=== PATIENT | male | born 1965 | race Caucasian/White ===

== ENCOUNTER 2017-04-15 02:13 | Observation (INO) | payer OTHER ==
[~2017-04-15] VITALS: Ht 172.7 cm; Wt 86.2 kg
[~2017-04-15 02:13] MED LIST: ADVIL,NUPRIN,M200 MG PO; AMITRIPTYLINE H50 MG PO; AMOXIL875 MG PO; CENTRUM SILVER1 EAC1 PO; COLACE100 MG PO; CONSTULOSE10 GM/15 M PO; Chronulac,Cephulac,E PO; FLOVENT DISKUS1 DIS1 IH; FLOXIN OTIC SOLN5 ML BOTH EARS; FLUCONAZOLE100 MG PO; FLUOXETINE HCL20 MG PO; GABAPENTIN400 MG PO; GENERLAC10 GM/15 M PO; IBUPROFEN IB200 MG PO; IMODIUM MS REL1 EACH PO; K-DUR20 MEQ PO; LASIX40 MG PO; LONG ACTING NAS15 ML RIGHT NARE; LYRICA100 MG PO; LYRICA150 MG PO; METFORMIN HCL500 M1 PO; NADOLOL20 MG PO; NADOLOL40 MG PO; NAPROXEN500 MG PO; NEURONTIN; NEURONTIN300 MG PO; NITROSTAT0.4 MG SL; NORTRIPTYLINE H25 MG PO; OMEPRAZOLE20 MG PO; OXYCODONE HCL10 MG PO; OXYCODONE HCL5 MG PO; PANTOPRAZOLE SO40 MG PO; PENTOXIFYLLINE400 MG PO; POTASSIUM-9999 MG PO; PREDNISONE20 MG PO; PREDNISONE5 M1 PO; PROAIR HFA8.5 GM IH; PROTONIX IV40 MG PO; PROZAC10 MG PO; RANITIDINE HCL150 M1 PO; SEREVENT DISKU50 MCG IH; SPIRONOLACTONE50 MG PO; TYLENOL WITH C1 EACH PO; VENTOLIN HFA18 GM IH; Vicodin,Lortab 5/500 PO; ZANAFLEX4 MG PO; ZANTAC150 MG PO; ZITHROMAX Z-PA250 MG PO
[2017-04-15 03:12] LABS: MCH 31.7 PG (29.0-34.0); MCHC 31.6 G/DL (30.0-36.0); MCV 100.5 FL (86-99); MEAN PLAT.VOLUME 11.8 uM^3 (9.0-12.4); PLATELET COUNT 62 K/uL (156-360); RBC DIS.WIDTH-SD 58.9 % (39-53); RED BLOOD COUNT 3.78 M/uL (4.00-5.50); WHITE BLOOD COUNT 3.9 K/uL (4.1-10.2)
[2017-04-15 03:24] LABS: CHLORIDE 113 mEq/L (99-109); POTASSIUM 3.5 mEq/L (3.7-5.4); SODIUM 146 mEq/L (136-147)
[2017-04-15 03:27] LABS: GLUCOSE 100 mg/dL (70-99)
[2017-04-15 03:28] LABS: ANION GAP 11 MEQ/L (2-14); TOTAL BILIRUBIN 4.2 mg/dL (0.0-1.0)
[2017-04-15 03:29] LABS: INTER. NORMALIZED RATIO 1.4; PROTHROMBIN TIME 14.8 (9.2-11.2); PTT 35.7 (25-32); SERUM ETHYL ALCOHOL 283 mg/dL
[2017-04-15 03:30] LABS: ALKALINE PHOSPHATASE 102 IU/L (3-129); GFR ESTIMATE (CALCULATED) > 59 mL/min/
[2017-04-15 03:31] LABS: UREA NITROGEN (BUN) 6 mg/dL (9-23)
[2017-04-15 03:34] LABS: TROP-I INTERPRETATION NEGATIVE; TROPONIN-I < 0.01 ng/mL (0.0-0.30)
[2017-04-15 06:16] LABS: MAGNESIUM 1.7 mg/dL (1.3-2.7)
[2017-04-15 07:24] VITALS: BP 118/68
[2017-04-15 10:39] LABS: TROP-I INTERPRETATION NEGATIVE; TROPONIN-I < 0.01 ng/mL (0.0-0.30)
[2017-04-15 11:20] VITALS: BP 116/65
[2017-04-15] MEDS ORDERED: FOLIC ACID1 MG PO (12:04)
[2017-04-15] MEDS ORDERED: Thiamine,Vitamin B1 PO (12:04)
[2017-04-15 12:15] VITALS: BP 115/70
[2017-04-15] MEDS ORDERED: VITAMIN D31000 UNI2 PO (13:17)
[2017-04-15 16:09] VITALS: BP 127/73
[2017-04-15 16:47] LABS: TROP-I INTERPRETATION NEGATIVE; TROPONIN-I < 0.01 ng/mL (0.0-0.30)
== END 2017-04-15 17:35 | disposition home or self-care (01) ==
LOC: EME → EDBD 02:13 → EDOF 05:51 → 5WEST 07:09
PROVIDERS: Emergency Medicine; Internal Medicine
DX: R07.89 Other chest pain (principal); D69.6 Thrombocytopenia, unspecified; J44.9 Chronic obstructive pulmonary disease, unspecified; E11.9 Type 2 diabetes mellitus without complications; F17.200 Nicotine dependence, unspecified, uncomplicated; M79.7 Fibromyalgia; F32.9 Major depressive disorder, single episode, unspecified; F41.9 Anxiety disorder, unspecified; G43.909 Migraine, unspecified, not intractable, without status migrainosus; F10.20 Alcohol dependence, uncomplicated; B19.20 Unspecified viral hepatitis C without hepatic coma; K76.6 Portal hypertension; K31.89 Other diseases of stomach and duodenum; K74.60 Unspecified cirrhosis of liver
CPT/HCPCS: 71010; 71275; 80053; 83735; 84484; 85027; 85379; 85610; 85730; 93005; 99281; 99285; G0378; G0480; J1885

== ENCOUNTER 2017-05-20 21:31 | Inpatient (IN) | payer OTHER ==
[~2017-05-20] VITALS: Ht 175.3 cm; Wt 89.7 kg
[~2017-05-20 21:31] MED LIST changes: +FOLIC ACID1 MG PO; +Thiamine,Vitamin B1 PO; +VITAMIN D31000 UNI2 PO
[2017-05-20 23:51] LABS: CHLORIDE 107 mEq/L (99-109); EOSINOPHIL (%) 0.6 % (0-5); HEMATOCRIT 37.8 % (38.0-50.0); INSTRUMENT ABS NEUTROPHIL CT 2.4 K/uL; LYMPHOCYTE COUNT 0.3 K/uL (1.0-2.8); MCH 32.3 PG (29.0-34.0); MCHC 32.3 G/DL (30.0-36.0); MONOCYTE (%) 17.8 % (3-12); MONOCYTE COUNT 0.6 K/uL (0-0.8); NEUTROPHIL (%) 71.6 % (45-76); NEUTROPHIL COUNT 2.4 K/uL (1.8-6.4); POTASSIUM 4.4 mEq/L (3.7-5.4); RBC DIS.WIDTH-CV 19.4 % (11.8-14.6); RBC DIS.WIDTH-SD 71.2 % (39-53); RED BLOOD COUNT 3.78 M/uL (4.00-5.50); SODIUM 139 mEq/L (136-147); WHITE BLOOD COUNT 3.3 K/uL (4.1-10.2)
[2017-05-20 23:53] LABS: GLUCOSE 122 mg/dL (70-99)
[2017-05-20 23:54] LABS: ANION GAP 9 MEQ/L (2-14)
[2017-05-20 23:55] LABS: TOTAL BILIRUBIN 4.1 mg/dL (0.0-1.0)
[2017-05-20 23:56] LABS: ALKALINE PHOSPHATASE 91 IU/L (3-129); SERUM ETHYL ALCOHOL < 10 mg/dL
[2017-05-20 23:57] LABS: GFR ESTIMATE (CALCULATED) > 59 mL/min/
[2017-05-20 23:58] LABS: UREA NITROGEN (BUN) 15 mg/dL (9-23)
[2017-05-21] VITALS (8 sets, daily range): BP systolic 100–133; BP diastolic 67–87
[2017-05-21] LABS: LIPASE 28 U/L (1.0-51.0)
[2017-05-21 00:04] LABS: TROP-I INTERPRETATION NEGATIVE; TROPONIN-I < 0.01 ng/mL (0.0-0.30)
[2017-05-21 00:10] LABS: CREATINE KINASE 1621 IU/L (1-294)
[2017-05-21 00:22] LABS: ADD MIUA? YES; BILIRUBIN SMALL; BLOOD NEGATIVE; COLOR AMBER ((YELLOW)); GLUCOSE (STRIP) 50; KETONES 20; LEUKOCYTES NEGATIVE; NITRITE NEGATIVE; PROTEIN (STRIP) 100; SPECIFIC GRAVITY 1.023 (1.000-1.030)
[2017-05-21 00:29] LABS: IMM.PLATELET FRACTION 14.8 (1-7); PLATELET COUNT 47 K/uL (156-360)
[2017-05-21 00:33] LABS: AMPHETAMINE NEGATIVE (500 ng/mL); BARBITURATES NEGATIVE (200 ng/mL); BENZODIAZEPINES PRESUMPTIVE POSITIVE (150 ng/mL); COCAINE NEGATIVE (150 ng/mL); INTERNAL CONTROLS VALID? YES; METHADONE NEGATIVE (200 ng/mL); METHAMPHETAMINE NEGATIVE (500 ng/mL); OPIATES (MORPHINE) NEGATIVE (100 ng/mL); OXYCODONE NEGATIVE (100 ng/mL); PHENCYCLIDINE NEGATIVE (25 ng/mL); PROPOXYPHENE NEGATIVE (300 ng/mL); THC CANNABINOIDS NEGATIVE (50 ng/mL); TRICYCLIC ANTIDEPRESSANTS PRESUMPTIVE POSITIVE (300 ng/mL)
[2017-05-21 00:34] LABS: ADD MEDTOX COMMENT Y
[2017-05-21 00:54] LABS: EPITHELIAL CELLS RARE /HPF; MUCUS RARE /LPF; RED BLOOD CELLS 0-5 /HPF (0-5); WHITE BLOOD CELLS 0-5 /HPF (0-5)
[2017-05-21 00:55] LABS: BACTERIA 1+ /HPF; CASTS PRESENT /LPF; CRYSTALS NONE SEEN; FINE GRANULAR CASTS RARE /LPF; HYALINE CASTS 0-5 /LPF; UCUL ADDED? NO
[2017-05-21 01:12] LABS: BENZODIAZEPINES, URINE SCREEN POSITIVE (200 ng/mL)
[2017-05-21 04:08] LABS: INTER. NORMALIZED RATIO 1.5; PROTHROMBIN TIME 15.8 (9.2-11.2); PTT 35.8 (25-32)
[2017-05-21 05:54] LABS: POINT-OF-CARE METER ID UU13113748; POINT-OF-CARE USER ID 609231305
[2017-05-21 06:30] LABS: EOSINOPHIL (%) 1.3 % (0-5); INSTRUMENT ABS NEUTROPHIL CT 1.4 K/uL; LYMPHOCYTE COUNT 0.5 K/uL (1.0-2.8); MCH 32.4 PG (29.0-34.0); MCHC 31.8 G/DL (30.0-36.0); MCV 101.9 FL (86-99); MONOCYTE (%) 18.5 % (3-12); MONOCYTE COUNT 0.4 K/uL (0-0.8); NEUTROPHIL (%) 60.5 % (45-76); NEUTROPHIL COUNT 1.4 K/uL (1.8-6.4); RBC DIS.WIDTH-CV 19.3 % (11.8-14.6); RBC DIS.WIDTH-SD 73.9 % (39-53); RED BLOOD COUNT 3.24 M/uL (4.00-5.50); WHITE BLOOD COUNT 2.4 K/uL (4.1-10.2)
[2017-05-21 06:59] LABS: HEMATOLOGY COMMENT 1 SMEAR COMPATIBLE; IMM.PLATELET FRACTION 9.9 (1-7); MEAN PLAT.VOLUME 14.5 uM^3 (9.0-12.4); PLAT.SUFFICIENCY DECREASED; PLATELET COUNT 42 K/uL (156-360)
[2017-05-21 07:03] LABS: ALKALINE PHOSPHATASE 76 IU/L (3-129); ANION GAP 7 MEQ/L (2-14); CHLORIDE 112 MEQ/L (99-109); GAMMA-GT 66 IU/L (4-73); GFR ESTIMATE (CALCULATED) > 59 mL/min/; GLUCOSE 98 mg/dL (70-99); POTASSIUM 3.7 MEQ/L (3.7-5.4); SAMPLE HEMOLYSIS CHECK 0; SAMPLE ICTERIC CHECK 1; SAMPLE LIPEMIA CHECK 0; SODIUM 142 MEQ/L (136-147); TOTAL BILIRUBIN 3.8 MG/DL (0.0-1.0); UREA NITROGEN (BUN) 10 mg/dL (9-23)
[2017-05-21 07:45] LABS: METH RESISTANT S AUREUS PCR NEGATIVE (NEGATIVE)
[2017-05-21 07:49] LABS: PROBE CHECK PASS; SPECIMEN PROCESSING CONTROL PASS
[2017-05-21 11:54] LABS: POINT-OF-CARE METER ID UU13113748
[2017-05-22 00:01] VITALS: BP 124/66
[2017-05-22 04:19] VITALS: BP 113/68
[2017-05-22 06:33] LABS: HEMATOCRIT 32.7 % (38.0-50.0); MCH 32.2 PG (29.0-34.0); MCHC 32.1 G/DL (30.0-36.0); MCV 100.3 FL (86-99); RBC DIS.WIDTH-SD 71.1 % (39-53); RED BLOOD COUNT 3.26 M/uL (4.00-5.50)
[2017-05-22 06:39] LABS: INTER. NORMALIZED RATIO 1.5; PROTHROMBIN TIME 15.8 (9.2-11.2); PTT 35.4 (25-32); WHITE BLOOD COUNT 1.8 K/uL (4.1-10.2)
[2017-05-22 06:46] LABS: ALKALINE PHOSPHATASE 80 IU/L (3-129); ANION GAP 6 MEQ/L (2-14); CHLORIDE 111 MEQ/L (99-109); GFR ESTIMATE (CALCULATED) > 59 mL/min/; GLUCOSE 93 mg/dL (70-99); POTASSIUM 3.3 MEQ/L (3.7-5.4); SAMPLE HEMOLYSIS CHECK 0; SAMPLE ICTERIC CHECK 1; SAMPLE LIPEMIA CHECK 0; SODIUM 139 MEQ/L (136-147); TOTAL BILIRUBIN 3.7 MG/DL (0.0-1.0); UREA NITROGEN (BUN) 7 mg/dL (9-23)
[2017-05-22 07:38] LABS: EOSINOPHIL (%) 2.8 % (0-5); EOSINOPHIL COUNT 0.1 K/uL (0-0.3); IMMATURE GRANULOCYTE (%) 0.6 % (0.0-0.7); LYMPHOCYTE COUNT 0.4 K/uL (1.0-2.8); MONOCYTE (%) 19.3 % (3-12); MONOCYTE COUNT 0.4 K/uL (0-0.8); NEUTROPHIL (%) 55.2 % (45-76); PLAT.SUFFICIENCY DECREASED; PLATELET COUNT 39 K/uL (156-360)
[2017-05-22 09:12] VITALS: BP 126/74
[2017-05-22 11:55] VITALS: BP 126/78
[2017-05-22 14:58] VITALS: BP 110/75
[2017-05-22 19:30] VITALS: BP 123/85
[2017-05-23 00:21] VITALS: BP 121/78
[2017-05-23 04:41] VITALS: BP 124/86
[2017-05-23 05:48] LABS: ALKALINE PHOSPHATASE 81 IU/L (3-129); ANION GAP 6 MEQ/L (2-14); CHLORIDE 107 MEQ/L (99-109); GFR ESTIMATE (CALCULATED) > 59 mL/min/; GLUCOSE 102 mg/dL (70-99); POTASSIUM 3.4 MEQ/L (3.7-5.4); SAMPLE HEMOLYSIS CHECK 0; SAMPLE ICTERIC CHECK 1; SAMPLE LIPEMIA CHECK 0; SODIUM 135 MEQ/L (136-147); TOTAL BILIRUBIN 4.1 MG/DL (0.0-1.0); UREA NITROGEN (BUN) 4 mg/dL (9-23)
[2017-05-23 06:15] LABS: HEMATOCRIT 32.1 % (38.0-50.0); MCH 32.6 PG (29.0-34.0); MCV 98.8 FL (86-99); RBC DIS.WIDTH-CV 18.5 % (11.8-14.6); RBC DIS.WIDTH-SD 66.8 % (39-53); RED BLOOD COUNT 3.25 M/uL (4.00-5.50); WHITE BLOOD COUNT 2.1 K/uL (4.1-10.2)
[2017-05-23 06:48] LABS: EOSINOPHIL (%) 2.3 % (0-5); EOSINOPHIL COUNT 0.1 K/uL (0-0.3); IMM.PLATELET FRACTION 11.7 (1-7); IMMATURE GRANULOCYTE (%) 0.5 % (0.0-0.7); INSTRUMENT ABS NEUTROPHIL CT 1.4 K/uL; LYMPHOCYTE COUNT 0.4 K/uL (1.0-2.8); MONOCYTE (%) 16.4 % (3-12); MONOCYTE COUNT 0.4 K/uL (0-0.8); NEUTROPHIL COUNT 1.4 K/uL (1.8-6.4); PLAT.SUFFICIENCY DECREASED; PLATELET COUNT 42 K/uL (156-360)
[2017-05-23 07:25] VITALS: BP 129/77
[2017-05-23 12:16] VITALS: BP 134/85
[2017-05-23] MEDS ORDERED: CONSTULOSE10 GM/15 M PO (15:34)
[2017-05-23] MEDS ORDERED: B-1100 MG PO (15:41)
[2017-05-23] MEDS ORDERED: SPIRONOLACTONE100 MG PO (15:42)
[2017-05-23 16:00] VITALS: BP 123/67
[2017-05-23 19:25] VITALS: BP 140/82
[2017-05-24] VITALS (8 sets, daily range): BP systolic 111–133; BP diastolic 73–84
[2017-05-24 06:08] LABS: EOSINOPHIL (%) 2.5 % (0-5); EOSINOPHIL COUNT 0.1 K/uL (0-0.3); HEMATOCRIT 32.3 % (38.0-50.0); IMMATURE GRANULOCYTE (%) 0.4 % (0.0-0.7); INSTRUMENT ABS NEUTROPHIL CT 1.5 K/uL; LYMPHOCYTE COUNT 0.4 K/uL (1.0-2.8); MCH 32.2 PG (29.0-34.0); MCHC 32.5 G/DL (30.0-36.0); MCV 99.1 FL (86-99); MONOCYTE (%) 14.6 % (3-12); MONOCYTE COUNT 0.4 K/uL (0-0.8); NEUTROPHIL (%) 63.7 % (45-76); NEUTROPHIL COUNT 1.5 K/uL (1.8-6.4); RBC DIS.WIDTH-CV 18.5 % (11.8-14.6); RBC DIS.WIDTH-SD 67.6 % (39-53); RED BLOOD COUNT 3.26 M/uL (4.00-5.50); WHITE BLOOD COUNT 2.4 K/uL (4.1-10.2)
[2017-05-24 06:45] LABS: ALKALINE PHOSPHATASE 74 IU/L (3-129); ANION GAP 7 MEQ/L (2-14); CHLORIDE 109 MEQ/L (99-109); GFR ESTIMATE (CALCULATED) > 59 mL/min/; GLUCOSE 101 mg/dL (70-99); POTASSIUM 3.5 MEQ/L (3.7-5.4); SAMPLE HEMOLYSIS CHECK 0; SAMPLE ICTERIC CHECK 1; SAMPLE LIPEMIA CHECK 0; SODIUM 138 MEQ/L (136-147); TOTAL BILIRUBIN 3.4 MG/DL (0.0-1.0); UREA NITROGEN (BUN) 3 mg/dL (9-23)
[2017-05-24 07:31] LABS: IMM.PLATELET FRACTION 13.4 (1-7); MEAN PLAT.VOLUME 13.7 uM^3 (9.0-12.4); PLAT.SUFFICIENCY DECREASED; PLATELET COUNT 41 K/uL (156-360)
[2017-05-25 03:21] VITALS: BP 121/83
[2017-05-25 06:14] LABS: EOSINOPHIL (%) 1.7 % (0-5); EOSINOPHIL COUNT 0.1 K/uL (0-0.3); IMMATURE GRANULOCYTE (%) 0.3 % (0.0-0.7); INSTRUMENT ABS NEUTROPHIL CT 2.1 K/uL; LYMPHOCYTE COUNT 0.4 K/uL (1.0-2.8); MCH 32.4 PG (29.0-34.0); MCHC 32.4 G/DL (30.0-36.0); MONOCYTE (%) 14.9 % (3-12); MONOCYTE COUNT 0.5 K/uL (0-0.8); NEUTROPHIL (%) 69.9 % (45-76); NEUTROPHIL COUNT 2.1 K/uL (1.8-6.4); RBC DIS.WIDTH-CV 18.8 % (11.8-14.6)
[2017-05-25 07:40] LABS: CHLORIDE 108 mEq/L (99-109); POTASSIUM 3.5 mEq/L (3.7-5.4); SODIUM 137 mEq/L (136-147)
[2017-05-25 07:42] LABS: GLUCOSE 92 mg/dL (70-99)
[2017-05-25 07:43] LABS: ANION GAP 8 MEQ/L (2-14)
[2017-05-25 07:45] LABS: ALKALINE PHOSPHATASE 82 IU/L (3-129)
[2017-05-25 07:46] LABS: GFR ESTIMATE (CALCULATED) > 59 mL/min/
[2017-05-25 07:47] LABS: TOTAL BILIRUBIN 3.1 mg/dL (0.0-1.0); UREA NITROGEN (BUN) 3 mg/dL (9-23)
[2017-05-25 08:00] VITALS: BP 121/83
[2017-05-25 08:18] LABS: HEMATOLOGY COMMENT 1 SMEAR COMPATIBLE; IMM.PLATELET FRACTION 12.7 (1-7); MEAN PLAT.VOLUME 12.9 uM^3 (9.0-12.4); PLAT.SUFFICIENCY DECREASED; PLATELET COUNT 42 K/uL (156-360)
[2017-05-25 11:30] VITALS: BP 113/75
[2017-05-25 16:19] VITALS: BP 128/69
[2017-05-25 19:30] VITALS: BP 92/60
[2017-05-26] VITALS (7 sets, daily range): BP systolic 103–135; BP diastolic 66–80
[2017-05-26 06:26] LABS: ALKALINE PHOSPHATASE 80 IU/L (3-129); ANION GAP 5 MEQ/L (2-14); CHLORIDE 109 MEQ/L (99-109); GFR ESTIMATE (CALCULATED) > 59 mL/min/; GLUCOSE 94 mg/dL (70-99); SAMPLE HEMOLYSIS CHECK 0; SAMPLE ICTERIC CHECK 0; SAMPLE LIPEMIA CHECK 0; SODIUM 137 MEQ/L (136-147); UREA NITROGEN (BUN) 3 mg/dL (9-23)
[2017-05-26 06:29] LABS: POTASSIUM 4.3 MEQ/L (3.7-5.4); TOTAL BILIRUBIN 2.7 MG/DL (0.0-1.0)
[2017-05-27 05:14] LABS: ADD MIUA? YES; BILIRUBIN NEGATIVE; BLOOD SMALL; COLOR YELLOW ((YELLOW)); GLUCOSE (STRIP) NEGATIVE; KETONES NEGATIVE; LEUKOCYTES NEGATIVE; NITRITE NEGATIVE; PROTEIN (STRIP) NEGATIVE; SPECIFIC GRAVITY 1.002 (1.000-1.030)
[2017-05-27 05:29] LABS: BACTERIA RARE /HPF; EPITHELIAL CELLS NONE SEEN /HPF; MUCUS NONE SEEN /LPF; RED BLOOD CELLS 0-5 /HPF (0-5); UCUL ADDED? NO; WHITE BLOOD CELLS 0-5 /HPF (0-5)
[2017-05-27 05:57] LABS: HEMATOCRIT 32.3 % (38.0-50.0); MCH 32.6 PG (29.0-34.0); MCHC 32.8 G/DL (30.0-36.0); MCV 99.4 FL (86-99); RBC DIS.WIDTH-CV 18.7 % (11.8-14.6); RBC DIS.WIDTH-SD 69.3 % (39-53); RED BLOOD COUNT 3.25 M/uL (4.00-5.50); WHITE BLOOD COUNT 3.1 K/uL (4.1-10.2)
[2017-05-27 06:22] LABS: ANION GAP 5 MEQ/L (2-14); CHLORIDE 106 MEQ/L (99-109); GFR ESTIMATE (CALCULATED) > 59 mL/min/; GLUCOSE 97 mg/dL (70-99); POTASSIUM 3.5 MEQ/L (3.7-5.4); SAMPLE HEMOLYSIS CHECK 0; SAMPLE ICTERIC CHECK 0; SAMPLE LIPEMIA CHECK 0; SODIUM 135 MEQ/L (136-147); UREA NITROGEN (BUN) 2 mg/dL (9-23)
[2017-05-27 06:48] VITALS: BP 100/64
[2017-05-27 08:14] LABS: MEAN PLAT.VOLUME 12.5 uM^3 (9.0-12.4); PLATELET COUNT 47 K/uL (156-360)
[2017-05-27 11:23] VITALS: BP 112/71
[2017-05-27 17:07] VITALS: BP 138/78
[2017-05-27 19:40] VITALS: BP 96/58
[2017-05-27 23:25] VITALS: BP 96/67
[2017-05-28 03:15] VITALS: BP 101/69
[2017-05-28 07:11] VITALS: BP 93/61
[2017-05-28 08:52] LABS: HEMATOCRIT 34.5 % (38.0-50.0); MCHC 32.2 G/DL (30.0-36.0); MCV 99.4 FL (86-99); PLATELET COUNT 58 K/uL (156-360); RBC DIS.WIDTH-CV 19.3 % (11.8-14.6); RBC DIS.WIDTH-SD 70.4 % (39-53); RED BLOOD COUNT 3.47 M/uL (4.00-5.50); WHITE BLOOD COUNT 3.6 K/uL (4.1-10.2)
[2017-05-28 09:02] LABS: ALKALINE PHOSPHATASE 86 IU/L (3-129); ANION GAP 5 MEQ/L (2-14); CHLORIDE 106 MEQ/L (99-109); DIRECT BILIRUBIN 1.2 mg/dL (0.0-0.3); GFR ESTIMATE (CALCULATED) > 59 mL/min/; GLUCOSE 111 mg/dL (70-99); POTASSIUM 4.1 MEQ/L (3.7-5.4); SAMPLE HEMOLYSIS CHECK 0; SAMPLE ICTERIC CHECK 0; SAMPLE LIPEMIA CHECK 0; SODIUM 136 MEQ/L (136-147); TOTAL BILIRUBIN 2.6 MG/DL (0.0-1.0); UREA NITROGEN (BUN) 4 mg/dL (9-23)
[2017-05-28 10:50] VITALS: BP 108/59
[2017-05-28 15:59] VITALS: BP 107/63
[2017-05-28 20:19] VITALS: BP 108/67
[2017-05-29 00:03] VITALS: BP 101/66
[2017-05-29 04:17] VITALS: BP 104/56
[2017-05-29 08:36] VITALS: BP 91/51
[2017-05-29 11:13] VITALS: BP 107/64
[2017-05-29 16:15] VITALS: BP 118/62
[2017-05-29 23:44] VITALS: BP 93/54
[2017-05-30 06:48] VITALS: BP 108/69
[2017-05-30] MEDS ORDERED: FAMOTIDINE20 MG PO (06:57)
[2017-05-30] MEDS ORDERED: Chronulac,Cephulac,E PO (06:57)
[2017-05-30] MEDS ORDERED: XIFAXAN550 MG PO (06:57)
[2017-05-30] MEDS ORDERED: LORAZEPAM0.5 MG PO (06:57)
[2017-05-30] MEDS ORDERED: NICOTINE PATCH1 EAC1 TD (06:57)
[2017-05-30] MEDS ORDERED: OXYCODONE HCL10 MG PO (07:00)
[2017-05-30 15:24] VITALS: BP 110/71
[2017-05-31 00:42] VITALS: BP 128/61
[2017-05-31 07:10] VITALS: BP 97/64
[2017-05-31 15:20] VITALS: BP 96/60
[2017-05-31 23:21] VITALS: BP 92/58
[2017-06-01 08:00] VITALS: BP 106/65
[2017-06-01 22:59] VITALS: BP 94/58
[2017-06-02 08:44] VITALS: BP 105/64
[2017-06-02 16:20] VITALS: BP 110/66
[2017-06-02 23:30] VITALS: BP 92/53
[2017-06-03 07:17] VITALS: BP 98/54
== END 2017-06-03 16:06 | disposition home health service (06) | DRG 56 ==
LOC: EME 21:31 → 5EAST 05-21 04:57 → EDOF 05-21 04:57 → 4WEST 05-21 04:57 → 4EAST 05-21 04:57 → 4WEST 05-21 05:37 → 4EAST 05-21 19:31 → 5EAST 05-27 14:11
PROVIDERS: Emergency Medicine; Pediatrics; Physician Assistant
PROC: HZ2ZZZZ Detoxification Services for Substance Abuse Treatment (ICD-10-PCS; principal; 2017-05-21)
DX: G31.2 Degeneration of nervous system due to alcohol (principal); F10.231 Alcohol dependence with withdrawal delirium; K72.90 Hepatic failure, unspecified without coma; M62.82 Rhabdomyolysis; K70.30 Alcoholic cirrhosis of liver without ascites; J69.0 Pneumonitis due to inhalation of food and vomit; D61.818 Other pancytopenia; E87.6 Hypokalemia; K52.9 Noninfective gastroenteritis and colitis, unspecified; Y90.0 Blood alcohol level of less than 20 mg/100 ml; F17.200 Nicotine dependence, unspecified, uncomplicated; F32.9 Major depressive disorder, single episode, unspecified; J44.9 Chronic obstructive pulmonary disease, unspecified; K21.9 Gastro-esophageal reflux disease without esophagitis; M79.7 Fibromyalgia; G43.909 Migraine, unspecified, not intractable, without status migrainosus; E11.9 Type 2 diabetes mellitus without complications; Z75.1 Person awaiting admission to adequate facility elsewhere; I25.2 Old myocardial infarction; Z88.2 Allergy status to sulfonamides; Z88.1 Allergy status to other antibiotic agents
CPT/HCPCS: 70450; 71010; 71020; 71250; 72125; 72128; 72131; 73030; 73080; 73130; 74176; 76705; 80048; 80048 91; 80053; 80069; 80076; 81003; 82105 90; 82140; 82550; 82948; 82977; 83605; 83690; 84484; 84999; 85025; 85025 91; 85027; 85610; 85730; 86900; 86901; 87040; 87641; 93005; 93976; 97530 GO; 99281; 99285; G0480; J0456; J0696; J1630; J2060; J2405; J3411; J3475; J3480; J7030; J7040; J7050; S0028

== ENCOUNTER 2017-07-19 11:09 | Inpatient (IN) | payer OTHER ==
[~2017-07-19] VITALS: Ht 172.7 cm; Wt 86.4 kg
[~2017-07-19 11:09] MED LIST changes: +AVENTYL,PAMELOR50 MG PO; +B-1100 MG PO; +FAMOTIDINE20 MG PO; +LORAZEPAM0.5 MG PO; +NICOTINE PATCH1 EAC1 TD; -NORTRIPTYLINE H25 MG PO; +SPIRONOLACTONE100 MG PO; +XIFAXAN550 MG PO
[2017-07-19 12:02] LABS: HEMATOCRIT 36.6 % (38.0-50.0); MCH 32.9 PG (29.0-34.0); MCHC 33.9 G/DL (30.0-36.0); MCV 97.1 FL (86-99); MEAN PLAT.VOLUME 12.5 uM^3 (9.0-12.4); PLATELET COUNT 65 K/uL (156-360); RBC DIS.WIDTH-CV 18.7 % (11.8-14.6); RBC DIS.WIDTH-SD 67.9 % (39-53); RED BLOOD COUNT 3.77 M/uL (4.00-5.50); WHITE BLOOD COUNT 2.9 K/uL (4.1-10.2)
[2017-07-19 12:13] LABS: CHLORIDE 99 mEq/L (99-109)
[2017-07-19 12:14] LABS: POTASSIUM 3.1 mEq/L (3.7-5.4); SODIUM 142 mEq/L (136-147)
[2017-07-19 12:15] LABS: GLUCOSE 120 mg/dL (70-99)
[2017-07-19 12:17] LABS: ANION GAP 17 MEQ/L (2-14)
[2017-07-19 12:19] LABS: GFR ESTIMATE (CALCULATED) > 59 mL/min/
[2017-07-19 12:20] LABS: UREA NITROGEN (BUN) 4 mg/dL (9-23)
[2017-07-19 14:55] LABS: POINT-OF-CARE METER ID UU14100415
[2017-07-19] MEDS ORDERED: OXYCODONE HCL10 MG PO (17:34)
[2017-07-19] MEDS ORDERED: ENULOSE10 GM/15 M PO (17:35)
[2017-07-19] MEDS ORDERED: HYDROCHLOROTHIA25 MG PO (17:35)
[2017-07-19] MEDS ORDERED: HYDROCHLOROTH12.5 M3 PO (17:36)
[2017-07-19 22:58] VITALS: BP 123/71
[2017-07-20 04:04] VITALS: BP 102/60
[2017-07-20 07:29] LABS: HEMATOCRIT 30.8 % (38.0-50.0); MCHC 34.1 G/DL (30.0-36.0); MCV 96.9 FL (86-99); RBC DIS.WIDTH-CV 18.3 % (11.8-14.6); RBC DIS.WIDTH-SD 66.1 % (39-53); RED BLOOD COUNT 3.18 M/uL (4.00-5.50); WHITE BLOOD COUNT 2.7 K/uL (4.1-10.2)
[2017-07-20 07:39] LABS: ALKALINE PHOSPHATASE 108 IU/L (3-129); ANION GAP 6 MEQ/L (2-14); CHLORIDE 100 MEQ/L (99-109); DIRECT BILIRUBIN 1.7 mg/dL (0.0-0.3); GFR ESTIMATE (CALCULATED) > 59 mL/min/; GLUCOSE 148 mg/dL (70-99); POTASSIUM 3.7 MEQ/L (3.7-5.4); SAMPLE HEMOLYSIS CHECK 0; SAMPLE ICTERIC CHECK 1; SAMPLE LIPEMIA CHECK 0; SODIUM 135 MEQ/L (136-147); TOTAL BILIRUBIN 4.7 MG/DL (0.0-1.0); UREA NITROGEN (BUN) 10 mg/dL (9-23)
[2017-07-20 07:49] LABS: IMM.PLATELET FRACTION 13.1 (1-7); PLAT.SUFFICIENCY DECREASED
[2017-07-20 07:54] LABS: PLATELET COUNT 38 K/uL (156-360)
[2017-07-20 08:32] VITALS: BP 100/58
[2017-07-20 11:25] VITALS: BP 115/69
[2017-07-20 15:55] VITALS: BP 111/64
[2017-07-20 19:15] VITALS: BP 126/65
[2017-07-20 22:55] VITALS: BP 115/63
[2017-07-21 06:36] LABS: HEMATOCRIT 29.7 % (38.0-50.0); MCH 34.1 PG (29.0-34.0); MCHC 34.3 G/DL (30.0-36.0); MCV 99.3 FL (86-99); RBC DIS.WIDTH-CV 18.3 % (11.8-14.6); RBC DIS.WIDTH-SD 67.2 % (39-53); RED BLOOD COUNT 2.99 M/uL (4.00-5.50); WHITE BLOOD COUNT 4.4 K/uL (4.1-10.2)
[2017-07-21 07:00] VITALS: BP 91/53
[2017-07-21 07:00] LABS: ALKALINE PHOSPHATASE 96 IU/L (3-129); ANION GAP 5 MEQ/L (2-14); CHLORIDE 101 MEQ/L (99-109); GFR ESTIMATE (CALCULATED) > 59 mL/min/; GLUCOSE 139 mg/dL (70-99); POTASSIUM 3.9 MEQ/L (3.7-5.4); SAMPLE HEMOLYSIS CHECK 0; SAMPLE ICTERIC CHECK 0; SAMPLE LIPEMIA CHECK 0; SODIUM 133 MEQ/L (136-147); UREA NITROGEN (BUN) 8 mg/dL (9-23)
[2017-07-21 07:01] LABS: TOTAL BILIRUBIN 2.8 MG/DL (0.0-1.0)
[2017-07-21 07:38] LABS: IMM.PLATELET FRACTION 11.1 (1-7); MEAN PLAT.VOLUME 13.3 uM^3 (9.0-12.4); PLAT.SUFFICIENCY DECREASED; PLATELET COUNT 32 K/uL (156-360)
[2017-07-21] MEDS ORDERED: PREDNISONE5 MG PO (14:01)
[2017-07-21] MEDS ORDERED: CEFTIN500 MG PO (14:01)
[2017-07-21 15:00] VITALS: BP 101/59
== END 2017-07-21 16:13 | disposition home health service (06) | DRG 191 ==
LOC: EME 11:09 → EDOF 17:01 → ENRESERV 17:08 → 5EAST 22:16
PROVIDERS: Emergency Medicine; Pediatrics; Physician Assistant
DX: J44.0 Chronic obstructive pulmonary disease with (acute) lower respiratory infection (principal); J20.9 Acute bronchitis, unspecified; D61.818 Other pancytopenia; K74.60 Unspecified cirrhosis of liver; B19.20 Unspecified viral hepatitis C without hepatic coma; K76.6 Portal hypertension; K31.89 Other diseases of stomach and duodenum; J44.1 Chronic obstructive pulmonary disease with (acute) exacerbation; D73.1 Hypersplenism; E11.9 Type 2 diabetes mellitus without complications; E87.6 Hypokalemia; F17.200 Nicotine dependence, unspecified, uncomplicated; I25.10 Atherosclerotic heart disease of native coronary artery without angina pectoris; K21.9 Gastro-esophageal reflux disease without esophagitis; F10.20 Alcohol dependence, uncomplicated; M79.7 Fibromyalgia; F32.9 Major depressive disorder, single episode, unspecified; F41.9 Anxiety disorder, unspecified; G43.909 Migraine, unspecified, not intractable, without status migrainosus; J02.9 Acute pharyngitis, unspecified; I25.2 Old myocardial infarction; Z88.2 Allergy status to sulfonamides; Z88.1 Allergy status to other antibiotic agents
CPT/HCPCS: 70491; 71010; 71260; 80048; 80053; 80069; 80076; 82948; 85027; 93005; 94640; 94640 76; 99202; 99281; 99285; J0696; J1644; J2930; J3411; J7030; J7050; J7120; J7512

== ENCOUNTER → 2017-08-01 | Outpatient (CLI) | payer OTHER ==
[~2017-08-01] MED LIST changes: +CEFTIN500 MG PO; +ENULOSE10 GM/15 M PO; +HYDROCHLOROTH12.5 M3 PO; +HYDROCHLOROTHIA25 MG PO; +PREDNISONE5 MG PO
== END | disposition home or self-care (01) ==
LOC: RAD 13:22
PROC: 0WJG3ZZ Inspection of Peritoneal Cavity, Percutaneous Approach (ICD-10-PCS; principal; 2017-08-01)
DX: Z53.09 Procedure and treatment not carried out because of other contraindication (principal)
CPT/HCPCS: 76705

== ENCOUNTER 2017-10-06 20:45 | Inpatient (IN) | payer OTHER ==
[~2017-10-06] VITALS: Ht 172.7 cm; Wt 100.5 kg
[2017-10-06 21:40] LABS: CHLORIDE 107 mEq/L (99-109); POTASSIUM 3.5 mEq/L (3.7-5.4); SODIUM 140 mEq/L (136-147)
[2017-10-06 21:41] LABS: GLUCOSE 123 mg/dL (70-99)
[2017-10-06 21:43] LABS: ANION GAP 11 MEQ/L (2-14)
[2017-10-06 21:45] LABS: GFR ESTIMATE (CALCULATED) > 59 mL/min/
[2017-10-06 21:46] LABS: UREA NITROGEN (BUN) 5 mg/dL (9-23)
[2017-10-06 21:48] LABS: HEMATOCRIT 37.3 % (38.0-50.0); MCH 30.3 PG (29.0-34.0); MCHC 32.7 G/DL (30.0-36.0); MCV 92.8 FL (86-99); PLATELET COUNT 62 K/uL (156-360); RBC DIS.WIDTH-CV 17.9 % (11.8-14.6); RBC DIS.WIDTH-SD 60.6 % (39-53); RED BLOOD COUNT 4.02 M/uL (4.00-5.50); WHITE BLOOD COUNT 4.4 K/uL (4.1-10.2)
[2017-10-06 21:51] LABS: CARBON DIOXIDE (BICARBONATE) 25.4 MEQ/L (20-31)
[2017-10-06 22:08] LABS: TROP-I INTERPRETATION NEGATIVE; TROPONIN-I < 0.01 ng/mL (0.0-0.30)
[2017-10-06] MEDS ORDERED: LASIX40 MG PO (23:03)
[2017-10-06] MEDS ORDERED: LASIX20 MG PO (23:03)
[2017-10-07] VITALS (7 sets, daily range): BP systolic 105–141; BP diastolic 63–77
[2017-10-07 00:29] LABS: INTER. NORMALIZED RATIO 1.5; PROTHROMBIN TIME 16.5 SEC (10.2-12.9)
[2017-10-07 00:35] LABS: TOTAL BILIRUBIN 3.8 mg/dL (0.0-1.0)
[2017-10-07 00:36] LABS: ALKALINE PHOSPHATASE 116 IU/L (3-129)
[2017-10-07] MEDS ORDERED: PREDNISONE5 MG PO (00:37)
[2017-10-07 04:44] LABS: ADD MIUA? NO; BILIRUBIN NEGATIVE; BLOOD NEGATIVE; COLOR YELLOW ((YELLOW)); GLUCOSE (STRIP) >=500; KETONES 20; LEUKOCYTES NEGATIVE; NITRITE NEGATIVE; PROTEIN (STRIP) NEGATIVE; SPECIFIC GRAVITY 1.016 (1.000-1.030); UCUL ADDED? NO
[2017-10-07 06:58] LABS: ANION GAP 14 MEQ/L (2-14); CHLORIDE 101 MEQ/L (99-109); GFR ESTIMATE (CALCULATED) > 59 mL/min/; GLUCOSE 184 mg/dL (70-99); POTASSIUM 4.2 MEQ/L (3.7-5.4); SAMPLE HEMOLYSIS CHECK 0; SAMPLE ICTERIC CHECK 1; SAMPLE LIPEMIA CHECK 0; SODIUM 136 MEQ/L (136-147); UREA NITROGEN (BUN) 6 mg/dL (9-23)
[2017-10-07 07:59] LABS: EOSINOPHIL (%) 0 % (0-5); HEMATOCRIT 33.9 % (38.0-50.0); INSTRUMENT ABS NEUTROPHIL CT 1.1 K/uL; LYMPHOCYTE COUNT 0.2 K/uL (1.0-2.8); MCH 29.6 PG (29.0-34.0); MCHC 31.6 G/DL (30.0-36.0); MCV 93.6 FL (86-99); MONOCYTE (%) 1.5 % (3-12); NEUTROPHIL (%) 83.3 % (45-76); NEUTROPHIL COUNT 1.1 K/uL (1.8-6.4); RBC DIS.WIDTH-CV 17.5 % (11.8-14.6); RBC DIS.WIDTH-SD 61.4 % (39-53); RED BLOOD COUNT 3.62 M/uL (4.00-5.50)
[2017-10-07 08:01] LABS: WHITE BLOOD COUNT 1.3 K/uL (4.1-10.2)
[2017-10-07 08:17] LABS: IMM.PLATELET FRACTION 9.8 (1-7); MEAN PLAT.VOLUME 12.5 uM^3 (9.0-12.4)
[2017-10-07 08:19] LABS: PLATELET COUNT 43 K/uL (156-360)
[2017-10-07 10:20] LABS: INTERNAL CONTROL VALID? YES
[2017-10-08] VITALS (8 sets, daily range): BP systolic 102–122; BP diastolic 58–63
[2017-10-08 04:58] LABS: HEMATOCRIT 33.2 % (38.0-50.0); MCH 30.5 PG (29.0-34.0); MCHC 32.2 G/DL (30.0-36.0); MCV 94.6 FL (86-99); RBC DIS.WIDTH-SD 61.9 % (39-53); RED BLOOD COUNT 3.51 M/uL (4.00-5.50); WHITE BLOOD COUNT 16.5 K/uL (4.1-10.2)
[2017-10-08 05:00] LABS: CHLORIDE 109 mEq/L (99-109); POTASSIUM 4.2 mEq/L (3.7-5.4); SODIUM 139 mEq/L (136-147)
[2017-10-08 05:02] LABS: GLUCOSE 153 mg/dL (70-99)
[2017-10-08 05:03] LABS: ANION GAP 10 MEQ/L (2-14)
[2017-10-08 05:04] LABS: TOTAL BILIRUBIN 3.6 mg/dL (0.0-1.0)
[2017-10-08 05:05] LABS: ALKALINE PHOSPHATASE 90 IU/L (3-129)
[2017-10-08 05:06] LABS: GFR ESTIMATE (CALCULATED) > 59 mL/min/
[2017-10-08 05:07] LABS: UREA NITROGEN (BUN) 7 mg/dL (9-23)
[2017-10-08 05:12] LABS: TROP-I INTERPRETATION NEGATIVE; TROPONIN-I < 0.01 ng/mL (0.0-0.30)
[2017-10-08 06:59] LABS: ABS NEUTROPHIL COUNT 16.1; ANISOCYTOSIS 2+; BAND NEUTROPHILS 12.2 % (0-8.0); EOSINOPHIL ABS CT 0; INSTRUMENT ABS NEUTROPHIL CT 15.5 K/uL; MACROCYTES 2+; METAMYELOCYTES 0.9 %; OVALOCYTES 1+; PLAT.SUFFICIENCY DECREASED; PLATELET COUNT 35 K/uL (156-360); POIKILOCYTOSIS 1+; POLYCHROMASIA 1+; SEG.NEUTROPHILS 85.2 % (46.0-76.0)
[2017-10-09] VITALS (13 sets, daily range): BP systolic 113–141; BP diastolic 59–93
[2017-10-09 05:55] LABS: EOSINOPHIL (%) 0 % (0-5); HEMATOCRIT 30.9 % (38.0-50.0); IMMATURE GRANULOCYTE (%) 2.2 % (0.0-0.7); IMMATURE GRANULOCYTE COUNT 0.2 K/uL; INSTRUMENT ABS NEUTROPHIL CT 8.8 K/uL; LYMPHOCYTE COUNT 0.3 K/uL (1.0-2.8); MCH 31.3 PG (29.0-34.0); MCHC 32.4 G/DL (30.0-36.0); MCV 96.6 FL (86-99); MONOCYTE (%) 3.3 % (3-12); MONOCYTE COUNT 0.3 K/uL (0-0.8); NEUTROPHIL (%) 91.6 % (45-76); NEUTROPHIL COUNT 8.8 K/uL (1.8-6.4); RBC DIS.WIDTH-CV 18.3 % (11.8-14.6); RBC DIS.WIDTH-SD 62.7 % (39-53); WHITE BLOOD COUNT 9.6 K/uL (4.1-10.2)
[2017-10-09 06:19] LABS: ALKALINE PHOSPHATASE 79 IU/L (3-129); ANION GAP 7 MEQ/L (2-14); CHLORIDE 105 MEQ/L (99-109); GFR ESTIMATE (CALCULATED) > 59 mL/min/; GLUCOSE 175 mg/dL (70-99); POTASSIUM 4.3 MEQ/L (3.7-5.4); SAMPLE HEMOLYSIS CHECK 0; SAMPLE ICTERIC CHECK 0; SAMPLE LIPEMIA CHECK 0; SODIUM 135 MEQ/L (136-147); TOTAL BILIRUBIN 2.5 MG/DL (0.0-1.0); UREA NITROGEN (BUN) 11 mg/dL (9-23)
[2017-10-09 06:36] LABS: ABS NEUTROPHIL COUNT 9.5; ANISOCYTOSIS 1+; BAND NEUTROPHILS 25.9 % (0-8.0); EOSINOPHIL ABS CT 0; HYPOCHROMASIA 1+; IMM.PLATELET FRACTION 13.5 (1-7); LYMPHOCYTES 0.8 % (15.0-45.0); MACROCYTES 1+; OVALOCYTES 1+; PLAT.SUFFICIENCY DECREASED; PLATELET COUNT 31 K/uL (156-360); POIKILOCYTOSIS 1+; POLYCHROMASIA 1+; SEG.NEUTROPHILS 73.3 % (46.0-76.0)
[2017-10-09 06:37] LABS: MEAN PLAT.VOLUME 14.6 uM^3 (9.0-12.4)
[2017-10-09 09:07] LABS: INTER. NORMALIZED RATIO 1.9
[2017-10-09 09:15] LABS: HEMATOCRIT 30.2 % (38.0-50.0); MCH 30.8 PG (29.0-34.0); MCHC 31.8 G/DL (30.0-36.0); MCV 96.8 FL (86-99); RBC DIS.WIDTH-CV 18.6 % (11.8-14.6); RBC DIS.WIDTH-SD 65.4 % (39-53); RED BLOOD COUNT 3.12 M/uL (4.00-5.50); WHITE BLOOD COUNT 19.2 K/uL (4.1-10.2)
[2017-10-09 09:26] LABS: ANION GAP 6 MEQ/L (2-14); CHLORIDE 110 MEQ/L (99-109); GFR ESTIMATE (CALCULATED) > 59 mL/min/; GLUCOSE 184 mg/dL (70-99); POTASSIUM 4.4 MEQ/L (3.7-5.4); SAMPLE HEMOLYSIS CHECK 0; SAMPLE ICTERIC CHECK 0; SAMPLE LIPEMIA CHECK 0; SODIUM 137 MEQ/L (136-147); UREA NITROGEN (BUN) 15 mg/dL (9-23)
[2017-10-09 09:31] LABS: IMM.PLATELET FRACTION 14.5 (1-7); PLAT.SUFFICIENCY DECREASED
[2017-10-09 09:32] LABS: PLATELET COUNT 44 K/uL (156-360)
[2017-10-09 12:41] LABS: HEMATOCRIT 28.9 % (38.0-50.0); IMM.PLATELET FRACTION 16.1 (1-7); MCHC 31.8 G/DL (30.0-36.0); MCV 97.3 FL (86-99); PLATELET COUNT 40 K/uL (156-360); RBC DIS.WIDTH-CV 18.5 % (11.8-14.6); RBC DIS.WIDTH-SD 64.3 % (39-53); RED BLOOD COUNT 2.97 M/uL (4.00-5.50); WHITE BLOOD COUNT 14.9 K/uL (4.1-10.2)
[2017-10-09 12:56] LABS: PLAT.SUFFICIENCY VERY DECREASED
[2017-10-09 16:28] LABS: POINT-OF-CARE METER ID UU13113725
[2017-10-09 19:09] LABS: HEMATOCRIT 26.3 % (38.0-50.0); MCH 31.3 PG (29.0-34.0); MCHC 31.6 G/DL (30.0-36.0); MCV 99.2 FL (86-99); NRBC (%) 0.2 /100 WBC (0-0); RBC DIS.WIDTH-CV 18.6 % (11.8-14.6); RBC DIS.WIDTH-SD 66.8 % (39-53); RED BLOOD COUNT 2.65 M/uL (4.00-5.50); WHITE BLOOD COUNT 12.3 K/uL (4.1-10.2)
[2017-10-09 19:43] LABS: IMM.PLATELET FRACTION 12.9 (1-7); PLATELET CLUMPS PRESENT - PLATELET COUNTS APPEARS DECREASED
[2017-10-09 19:46] LABS: PLATELET COUNT UNABLE TO REPORT K/uL (156-360)
[2017-10-09 23:14] LABS: METH RESISTANT S AUREUS PCR NEGATIVE (NEGATIVE)
[2017-10-09 23:21] LABS: PROBE CHECK PASS; SPECIMEN PROCESSING CONTROL PASS
[2017-10-10] VITALS (27 sets, daily range): BP systolic 113–157; BP diastolic 72–105
[2017-10-10 00:56] LABS: HEMATOCRIT 27.6 % (38.0-50.0); MCH 30.6 PG (29.0-34.0); MCHC 32.2 G/DL (30.0-36.0); NRBC (%) 0.3 /100 WBC (0-0); RBC DIS.WIDTH-CV 19.1 % (11.8-14.6); RBC DIS.WIDTH-SD 64.9 % (39-53); RED BLOOD COUNT 2.91 M/uL (4.00-5.50)
[2017-10-10 01:05] LABS: MCV 94.8 FL (86-99)
[2017-10-10 01:35] LABS: IMM.PLATELET FRACTION 18.9 (1-7); MEAN PLAT.VOLUME 14.2 uM^3 (9.0-12.4); PLAT.SUFFICIENCY VERY DECREASED; PLATELET COUNT 33 K/uL (156-360)
[2017-10-10 05:26] LABS: EOSINOPHIL (%) 0 % (0-5); HEMATOCRIT 29.3 % (38.0-50.0); IMMATURE GRANULOCYTE (%) 1.3 % (0.0-0.7); IMMATURE GRANULOCYTE COUNT 0.1 K/uL; INSTRUMENT ABS NEUTROPHIL CT 5.6 K/uL; LYMPHOCYTE COUNT 0.2 K/uL (1.0-2.8); MCHC 31.7 G/DL (30.0-36.0); MCV 94.5 FL (86-99); MONOCYTE (%) 3.3 % (3-12); MONOCYTE COUNT 0.2 K/uL (0-0.8); NEUTROPHIL (%) 91.5 % (45-76); NEUTROPHIL COUNT 5.6 K/uL (1.8-6.4); NRBC (%) 0.5 /100 WBC (0-0); RBC DIS.WIDTH-CV 18.8 % (11.8-14.6); RBC DIS.WIDTH-SD 62.5 % (39-53); WHITE BLOOD COUNT 6.1 K/uL (4.1-10.2)
[2017-10-10 05:30] LABS: INTER. NORMALIZED RATIO 1.7; PROTHROMBIN TIME 19.7 SEC (10.2-12.9)
[2017-10-10 05:52] LABS: ALKALINE PHOSPHATASE 71 IU/L (3-129); ANION GAP 7 MEQ/L (2-14); CHLORIDE 110 MEQ/L (99-109); GFR ESTIMATE (CALCULATED) > 59 mL/min/; GLUCOSE 167 mg/dL (70-99); POTASSIUM 4.5 MEQ/L (3.7-5.4); SAMPLE HEMOLYSIS CHECK 0; SAMPLE ICTERIC CHECK 1; SAMPLE LIPEMIA CHECK 0; SODIUM 140 MEQ/L (136-147); UREA NITROGEN (BUN) 17 mg/dL (9-23)
[2017-10-10 06:39] LABS: IMM.PLATELET FRACTION 15.6 (1-7); MEAN PLAT.VOLUME 13.5 uM^3 (9.0-12.4); PLAT.SUFFICIENCY DECREASED; PLATELET COUNT 38 K/uL (156-360)
[2017-10-10 13:23] LABS: HEMATOCRIT 29.4 % (38.0-50.0); MCH 30.2 PG (29.0-34.0); MCHC 31.6 G/DL (30.0-36.0); MCV 95.5 FL (86-99); NRBC (%) 0.4 /100 WBC (0-0); RBC DIS.WIDTH-SD 63.8 % (39-53); RED BLOOD COUNT 3.08 M/uL (4.00-5.50); WHITE BLOOD COUNT 5.3 K/uL (4.1-10.2)
[2017-10-10 13:43] LABS: IMM.PLATELET FRACTION 13.2 (1-7); MEAN PLAT.VOLUME 12.7 uM^3 (9.0-12.4); PLATELET COUNT 41 K/uL (156-360)
[2017-10-10 17:51] LABS: HEMATOCRIT 29.6 % (38.0-50.0); MCH 30.7 PG (29.0-34.0); MCHC 32.1 G/DL (30.0-36.0); MCV 95.8 FL (86-99); NRBC (%) 0.9 /100 WBC (0-0); RBC DIS.WIDTH-CV 19.2 % (11.8-14.6); RBC DIS.WIDTH-SD 63.6 % (39-53); RED BLOOD COUNT 3.09 M/uL (4.00-5.50); WHITE BLOOD COUNT 5.3 K/uL (4.1-10.2)
[2017-10-10 18:32] LABS: IMM.PLATELET FRACTION 12.3 (1-7); MEAN PLAT.VOLUME 11.9 uM^3 (9.0-12.4); PLAT.SUFFICIENCY VERY DECREASED; PLATELET COUNT 37 K/uL (156-360)
[2017-10-11] VITALS: BP 146/94
[2017-10-11 00:44] LABS: HEMATOCRIT 28.8 % (38.0-50.0); MCH 30.6 PG (29.0-34.0); MCHC 32.3 G/DL (30.0-36.0); MCV 94.7 FL (86-99); RBC DIS.WIDTH-CV 19.1 % (11.8-14.6); RBC DIS.WIDTH-SD 62.2 % (39-53); RED BLOOD COUNT 3.04 M/uL (4.00-5.50); WHITE BLOOD COUNT 4.1 K/uL (4.1-10.2)
[2017-10-11 02:28] LABS: IMM.PLATELET FRACTION 12.5 (1-7); MEAN PLAT.VOLUME 12.3 uM^3 (9.0-12.4); PLAT.SUFFICIENCY VERY DECREASED; PLATELET COUNT 31 K/uL (156-360)
[2017-10-11 04:00] VITALS: BP 137/92
[2017-10-11 04:59] LABS: HEMATOCRIT 28.8 % (38.0-50.0); MCH 30.9 PG (29.0-34.0); MCV 93.8 FL (86-99); NRBC (%) 1.2 /100 WBC (0-0); RBC DIS.WIDTH-SD 61.2 % (39-53); RED BLOOD COUNT 3.07 M/uL (4.00-5.50); WHITE BLOOD COUNT 4.2 K/uL (4.1-10.2)
[2017-10-11 07:27] LABS: IMM.PLATELET FRACTION 16.5 (1-7); MEAN PLAT.VOLUME 13.7 uM^3 (9.0-12.4); PLAT.SUFFICIENCY DECREASED; PLATELET COUNT 39 K/uL (156-360)
[2017-10-11 08:00] VITALS: BP 124/81
[2017-10-11] MEDS ORDERED: AZITHROMYCIN250 MG1 PO (09:26)
[2017-10-11] MEDS ORDERED: AUGMENTIN500 MG PO (09:26)
[2017-10-11] MEDS ORDERED: PROTONIX IV40 MG PO (09:34)
[2017-10-11] MEDS ORDERED: SOLU-MEDRO40 MG/1 ML PO (09:34)
[2017-10-11 12:00] VITALS: BP 136/93
== END 2017-10-11 14:35 | disposition home or self-care (01) | DRG 193 ==
LOC: EME 20:45 → EDOF 23:49 → 4WEST 23:49 → 5EAST 23:49 → ENRESERV 23:52 → 5EAST 10-07 00:55 → ENRESERV 10-09 18:52 → 5EAST 10-09 18:53 → ENRESERV 10-09 19:31 → 4WEST 10-09 21:27 → CANRESERV 10-10 18:40 → ENRESERV 10-10 18:40 → 4WEST 10-11 14:35
PROVIDERS: Emergency Medicine; Hospitalist; Internal Medicine Critical Care Medicine; Internal Medicine Pulmonary Disease; Nurse Practitioner Adult Health; Pediatrics; Pediatrics Pediatric Infectious Diseases; Physician Assistant Medical; Specialist
DX: J18.9 Pneumonia, unspecified organism (principal); J44.0 Chronic obstructive pulmonary disease with (acute) lower respiratory infection; J44.1 Chronic obstructive pulmonary disease with (acute) exacerbation; D61.818 Other pancytopenia; I85.11 Secondary esophageal varices with bleeding; D62 Acute posthemorrhagic anemia; R04.2 Hemoptysis; R00.0 Tachycardia, unspecified; R09.02 Hypoxemia; J98.01 Acute bronchospasm; E87.6 Hypokalemia; K72.10 Chronic hepatic failure without coma; K76.6 Portal hypertension; K31.89 Other diseases of stomach and duodenum; K70.31 Alcoholic cirrhosis of liver with ascites; F10.20 Alcohol dependence, uncomplicated; M79.7 Fibromyalgia; K21.9 Gastro-esophageal reflux disease without esophagitis; I86.4 Gastric varices; I25.10 Atherosclerotic heart disease of native coronary artery without angina pectoris; B19.20 Unspecified viral hepatitis C without hepatic coma; D12.5 Benign neoplasm of sigmoid colon; E11.9 Type 2 diabetes mellitus without complications; F32.9 Major depressive disorder, single episode, unspecified; F41.9 Anxiety disorder, unspecified; F17.210 Nicotine dependence, cigarettes, uncomplicated; I25.2 Old myocardial infarction; Z86.73 Personal history of transient ischemic attack (TIA), and cerebral infarction without residual deficits; Z90.49 Acquired absence of other specified parts of digestive tract; Z98.52 Vasectomy status; Z88.2 Allergy status to sulfonamides; Z80.0 Family history of malignant neoplasm of digestive organs
CPT/HCPCS: 71020; 76705; 80048; 80048 91; 80053; 80076; 81003; 82803; 82948; 83605; 83735; 83880; 84484; 85025; 85027; 85610; 85730; 86850; 86900; 86901; 86920; 87040; 87070; 87205; 87449; 87641; 93005; 93975; 94640; 94640 76; 94760; 99202; 99281; 99285; C9113; J0295; J0456; J1100; J1447; J2250; J2354; J2405; J2543; J2920; J2930; J3010; J3411; J3430; J7030; J7050; P9016; P9017; P9035

== ENCOUNTER 2017-10-13 11:55 | Observation (INO) | payer OTHER ==
[~2017-10-13] VITALS: Ht 172.7 cm; Wt 103.1 kg
[~2017-10-13 11:55] MED LIST changes: +AUGMENTIN500 MG PO; +AZITHROMYCIN250 MG1 PO; +LASIX20 MG PO; +SOLU-MEDRO40 MG/1 ML PO
[2017-10-13 14:53] LABS: CHLORIDE 105 mEq/L (99-109); SODIUM 136 mEq/L (136-147)
[2017-10-13 14:54] LABS: POTASSIUM 3.1 mEq/L (3.7-5.4)
[2017-10-13 14:56] LABS: GLUCOSE 96 mg/dL (70-99)
[2017-10-13 14:57] LABS: ANION GAP 6 MEQ/L (2-14)
[2017-10-13 14:58] LABS: TOTAL BILIRUBIN 4.2 mg/dL (0.0-1.0)
[2017-10-13 14:59] LABS: ALKALINE PHOSPHATASE 85 IU/L (3-129); GFR ESTIMATE (CALCULATED) > 59 mL/min/
[2017-10-13 15:00] LABS: UREA NITROGEN (BUN) 15 mg/dL (9-23)
[2017-10-13 15:03] LABS: HEMATOCRIT 32.7 % (38.0-50.0); MCH 30.3 PG (29.0-34.0); MCHC 32.1 G/DL (30.0-36.0); MCV 94.5 FL (86-99); RBC DIS.WIDTH-CV 19.2 % (11.8-14.6); RBC DIS.WIDTH-SD 64.6 % (39-53); RED BLOOD COUNT 3.46 M/uL (4.00-5.50); WHITE BLOOD COUNT 5.9 K/uL (4.1-10.2)
[2017-10-13 15:24] LABS: INTER. NORMALIZED RATIO 1.7; PROTHROMBIN TIME 19.5 SEC (10.2-12.9)
[2017-10-13 15:27] LABS: PTT 33.4 SEC (25-37)
[2017-10-13 15:43] LABS: LIPASE 16 U/L (1.0-51.0)
[2017-10-13 15:47] LABS: IMM.PLATELET FRACTION 20.9 (1-7); PLAT.SUFFICIENCY VERY DECREASED; PLATELET COUNT 33 K/uL (156-360)
[2017-10-13 19:45] LABS: TYPE OF FLUID PERITONEAL
[2017-10-13 20:48] LABS: BODY FLUID EOSINOPHILS 0 % (0-25); BODY FLUID RBC'S 1000 /MM^3 (0-100); BODY FLUID WBC'S 91 /MM^3 (0-500); MONONUCLEAR WBC'S 71 %; POLYNUCLEAR WBC'S 29 % (0-25)
[2017-10-13 20:50] LABS: COMMENT MANY MACROPHAGES
[2017-10-13 21:37] VITALS: BP 110/70
[2017-10-13 23:33] VITALS: BP 114/66
[2017-10-14 03:56] VITALS: BP 118/71
[2017-10-14 05:47] LABS: HEMATOCRIT 28.8 % (38.0-50.0); MCH 29.7 PG (29.0-34.0); MCHC 31.6 G/DL (30.0-36.0); MCV 94.1 FL (86-99); NRBC (%) 0.4 /100 WBC (0-0); RBC DIS.WIDTH-CV 19.2 % (11.8-14.6); RBC DIS.WIDTH-SD 64.2 % (39-53); RED BLOOD COUNT 3.06 M/uL (4.00-5.50); WHITE BLOOD COUNT 4.6 K/uL (4.1-10.2)
[2017-10-14 06:28] LABS: PLAT.SUFFICIENCY DECREASED
[2017-10-14 06:36] LABS: ALKALINE PHOSPHATASE 70 IU/L (3-129); ANION GAP 7 MEQ/L (2-14); CHLORIDE 106 MEQ/L (99-109); GFR ESTIMATE (CALCULATED) > 59 mL/min/; GLUCOSE 90 mg/dL (70-99); POTASSIUM 3.6 MEQ/L (3.7-5.4); SAMPLE HEMOLYSIS CHECK 0; SAMPLE ICTERIC CHECK 1; SAMPLE LIPEMIA CHECK 0; SODIUM 138 MEQ/L (136-147); TOTAL BILIRUBIN 4.6 MG/DL (0.0-1.0); UREA NITROGEN (BUN) 15 mg/dL (9-23)
[2017-10-14 06:37] LABS: PLATELET COUNT 29 K/uL (156-360)
[2017-10-14 08:20] VITALS: BP 109/66
== END 2017-10-14 12:10 | disposition left against medical advice (07) ==
LOC: EME 11:55 → EDOF 18:42 → CANRESERV 18:42 → EDOF 18:42 → 5WEST 18:42 → ENRESERV 18:42 → EDOF 18:45 → ENRESERV 19:23 → EDOF 20:00 → ENRESERV 20:02 → 5WEST 21:28
PROVIDERS: Emergency Medicine; Internal Medicine
DX: R18.8 Other ascites (principal); B19.20 Unspecified viral hepatitis C without hepatic coma; K72.90 Hepatic failure, unspecified without coma; F10.20 Alcohol dependence, uncomplicated; J44.9 Chronic obstructive pulmonary disease, unspecified; E11.9 Type 2 diabetes mellitus without complications; F32.9 Major depressive disorder, single episode, unspecified; F41.9 Anxiety disorder, unspecified; I85.10 Secondary esophageal varices without bleeding; F17.200 Nicotine dependence, unspecified, uncomplicated; E87.6 Hypokalemia; D69.59 Other secondary thrombocytopenia; K76.6 Portal hypertension; D53.9 Nutritional anemia, unspecified
CPT/HCPCS: 49083; 71010; 80048 91; 80053; 81003; 82140; 83690; 83880; 85027; 85610; 85730; 87205; 88108; 89051; 93005; 94640; 99202; 99281; 99284; G0378

== ENCOUNTER → 2017-10-16 | Outpatient (CLI) | payer OTHER | END | disposition home or self-care (01) | LOC: RAD 08:07 | PROC: 0W9G3ZZ Drainage of Peritoneal Cavity, Percutaneous Approach (ICD-10-PCS; principal; 2017-10-16) | DX: K70.31 Alcoholic cirrhosis of liver with ascites (principal) | CPT/HCPCS: 49083 ==

== ENCOUNTER → 2017-10-30 | Outpatient (CLI) | payer OTHER | END | disposition home or self-care (01) | LOC: RAD 08:05 | PROC: 0W9G3ZZ Drainage of Peritoneal Cavity, Percutaneous Approach (ICD-10-PCS; principal; 2017-10-30) | DX: K70.31 Alcoholic cirrhosis of liver with ascites (principal); K72.90 Hepatic failure, unspecified without coma | CPT/HCPCS: 49083 ==

== ENCOUNTER 2017-11-07 14:39 | Emergency (ER) | payer OTHER ==
[~2017-11-07] VITALS: Ht 172.7 cm; Wt 88.4 kg
[~2017-11-07 14:39] MED LIST changes: -AUGMENTIN875 MG PO; -OXAYDO5 MG PO; -PERCOCET 5/31 TABLET PO
[2017-11-07 15:32] LABS: CHLORIDE 99 mEq/L (99-109); POTASSIUM 3.9 mEq/L (3.7-5.4); SODIUM 135 mEq/L (136-147)
[2017-11-07 15:33] LABS: HEMATOCRIT 34.9 % (38.0-50.0); MCH 29.5 PG (29.0-34.0); MCHC 31.2 G/DL (30.0-36.0); MCV 94.6 FL (86-99); RBC DIS.WIDTH-CV 20.1 % (11.8-14.6); RBC DIS.WIDTH-SD 70.4 % (39-53); WHITE BLOOD COUNT 2.6 K/uL (4.1-10.2)
[2017-11-07 15:34] LABS: GLUCOSE 106 mg/dL (70-99)
[2017-11-07 15:35] LABS: ANION GAP 9 MEQ/L (2-14); PLATELET COUNT 55 K/uL (156-360); RED BLOOD COUNT 3.69 M/uL (4.00-5.50)
[2017-11-07 15:37] LABS: ALKALINE PHOSPHATASE 140 IU/L (3-129)
[2017-11-07 15:38] LABS: GFR ESTIMATE (CALCULATED) > 59 mL/min/ (58.99-99999)
[2017-11-07 15:39] LABS: UREA NITROGEN (BUN) 8 mg/dL (9-23)
[2017-11-07 21:18] LABS: ADD MIUA? YES; BILIRUBIN SMALL; BLOOD NEGATIVE; COLOR AMBER ((YELLOW)); GLUCOSE (STRIP) NEGATIVE; KETONES 20; LEUKOCYTES NEGATIVE; NITRITE NEGATIVE; PROTEIN (STRIP) 30
[2017-11-07] MEDS ORDERED: PERCOCET 5/31 TABLET PO (21:29)
[2017-11-07] MEDS ORDERED: OXAYDO5 MG PO (21:36)
[2017-11-07] MEDS ORDERED: AUGMENTIN875 MG PO (21:37)
[2017-11-07 21:42] LABS: BACTERIA RARE /HPF; CASTS NONE SEEN /LPF; EPITHELIAL CELLS NONE SEEN /HPF; MUCUS 2+ /LPF; RED BLOOD CELLS NONE SEEN /HPF (0-5); UCUL ADDED? NO; WHITE BLOOD CELLS RARE /HPF (0-5)
[2017-11-07 21:43] LABS: SPECIFIC GRAVITY 1.066 (1.000-1.030)
[2017-11-07 22:30] VITALS: BP 111/76
== END 2017-11-07 21:30 | disposition home or self-care (01) ==
LOC: EME 14:39
DX: R10.9 Unspecified abdominal pain (principal); R18.8 Other ascites; Z98.890 Other specified postprocedural states; K72.90 Hepatic failure, unspecified without coma; B19.20 Unspecified viral hepatitis C without hepatic coma; J44.9 Chronic obstructive pulmonary disease, unspecified; F17.210 Nicotine dependence, cigarettes, uncomplicated; I25.2 Old myocardial infarction; F32.9 Major depressive disorder, single episode, unspecified; M79.7 Fibromyalgia; K21.9 Gastro-esophageal reflux disease without esophagitis; Z86.73 Personal history of transient ischemic attack (TIA), and cerebral infarction without residual deficits; Z95.0 Presence of cardiac pacemaker; Z88.2 Allergy status to sulfonamides; Z88.1 Allergy status to other antibiotic agents
CPT/HCPCS: 74177; 80053; 81003; 85027; 99281; 99285; J2270; J7040

== ENCOUNTER → 2017-11-07 | Outpatient (CLI) | payer OTHER ==
[~2017-11-07] MED LIST changes: +AUGMENTIN875 MG PO; +OXAYDO5 MG PO; +PERCOCET 5/31 TABLET PO
== END | disposition home or self-care (01) ==
LOC: RAD 13:15
PROC: 0W9G3ZZ Drainage of Peritoneal Cavity, Percutaneous Approach (ICD-10-PCS; principal; 2017-11-07)
DX: K70.31 Alcoholic cirrhosis of liver with ascites (principal); K72.90 Hepatic failure, unspecified without coma
CPT/HCPCS: 49083

== ENCOUNTER → 2017-11-20 | Outpatient (CLI) | payer OTHER ==
[~2017-11-20] MED LIST changes: +AUGMENTIN875 MG PO; +OXAYDO5 MG PO; +PERCOCET 5/31 TABLET PO
== END | disposition home or self-care (01) ==
LOC: RAD 08:15
PROC: 0WJG3ZZ Inspection of Peritoneal Cavity, Percutaneous Approach (ICD-10-PCS; principal; 2017-11-20)
DX: K70.31 Alcoholic cirrhosis of liver with ascites (principal); K72.90 Hepatic failure, unspecified without coma; Z53.09 Procedure and treatment not carried out because of other contraindication
CPT/HCPCS: 76705

== ENCOUNTER → 2017-11-27 | Outpatient (CLI) | payer OTHER | END | disposition home or self-care (01) | LOC: RAD 08:27 | PROC: 0WJG3ZZ Inspection of Peritoneal Cavity, Percutaneous Approach (ICD-10-PCS; principal; 2017-11-27) | DX: K70.31 Alcoholic cirrhosis of liver with ascites (principal); K72.90 Hepatic failure, unspecified without coma; Z53.09 Procedure and treatment not carried out because of other contraindication | CPT/HCPCS: 76705 ==

== ENCOUNTER → 2017-12-04 | Outpatient (CLI) | payer OTHER | END | disposition home or self-care (01) | LOC: RAD 08:15 | PROC: 0WJG3ZZ Inspection of Peritoneal Cavity, Percutaneous Approach (ICD-10-PCS; principal; 2017-12-04) | DX: K70.31 Alcoholic cirrhosis of liver with ascites (principal); K72.90 Hepatic failure, unspecified without coma; Z53.09 Procedure and treatment not carried out because of other contraindication | CPT/HCPCS: 76705 ==

== ENCOUNTER 2017-12-19 01:08 | Inpatient (IN) | payer OTHER ==
[~2017-12-19] VITALS: Ht 172.7 cm; Wt 89.9 kg
[2017-12-19 01:57] LABS: BASE EXCESS -2.2 mEq/L (-3 to +3); BICARBONATE 20.9 mEq/L (22-26); CARBOXY HGB 3.2 % (0-5); METHEMOGLOBIN 0.9 % (0-1.5); PCO2 30 mm Hg (35-45); PO2 84 mm Hg (80-100); pH 7.45 (7.35-7.45)
[2017-12-19 01:59] LABS: DEVICE NC; SITE LR
[2017-12-19 02:00] LABS: BASOPHIL (%) 0 % (0-1); EOSINOPHIL (%) 0 % (0-5); HEMATOCRIT 35.5 % (38.0-50.0); HEMOGLOBIN 11.3 G/DL (12.5-16.6); IMMATURE GRANULOCYTE (%) 0.5 % (0.0-0.7); LYMPHOCYTE (%) 10.9 % (15-42); LYMPHOCYTE COUNT 0.4 K/uL (1.0-2.8); MCH 28.9 PG (29.0-34.0); MCHC 31.8 G/DL (30.0-36.0); MCV 90.8 FL (86-99); MONOCYTE (%) 3.3 % (3-12); MONOCYTE COUNT 0.1 K/uL (0-0.8); NEUTROPHIL (%) 85.3 % (45-76); NEUTROPHIL COUNT 3.4 K/uL (1.8-6.4); PLATELET COUNT 57 K/uL (156-360); RBC DIS.WIDTH-CV 21.3 % (11.8-14.6); RBC DIS.WIDTH-SD 70.5 % (39-53); RED BLOOD COUNT 3.91 M/uL (4.00-5.50); WHITE BLOOD COUNT 3.9 K/uL (4.1-10.2)
[2017-12-19 02:04] LABS: ALBUMIN 3.3 g/dL (3.2-4.8); CHLORIDE 106 mEq/L (99-109); POTASSIUM 4.3 mEq/L (3.7-5.4); SODIUM 140 mEq/L (136-147)
[2017-12-19 02:07] LABS: GLUCOSE 163 mg/dL (70-99); TOTAL PROTEIN 7.5 g/dL (6.4-8.3)
[2017-12-19 02:09] LABS: TOTAL BILIRUBIN 2.9 mg/dL (0.0-1.0)
[2017-12-19 02:10] LABS: ALKALINE PHOSPHATASE 140 IU/L (3-129)
[2017-12-19 02:11] LABS: CREATININE 0.7 mg/dL (0.6-1.3); GFR ESTIMATE (CALCULATED) > 59 mL/min/ (58.99-99999)
[2017-12-19 02:12] LABS: AST (GOT) 84 IU/L (2-34); DIRECT BILIRUBIN 1.9 mg/dL (0.0-0.3); UREA NITROGEN (BUN) 8 mg/dL (9-23)
[2017-12-19 02:14] LABS: ALT (GPT) 34 IU/L (3-49); LIPASE 34 U/L (1.0-51.0)
[2017-12-19 02:48] LABS: O2 FLOW 3 L/MIN
[2017-12-19] MEDS ORDERED: MAGNESIUM OXID500 M1 PO (03:16)
[2017-12-19] MEDS ORDERED: FLOMAX0.4 MG PO (03:17)
[2017-12-19] MEDS ORDERED: PROTONIX40 MG PO (03:17)
[2017-12-19] MEDS ORDERED: KLOR-CON M2020 MEQ PO (03:18)
[2017-12-19 07:24] LABS: APPEARANCE SL.HAZY ((CLEAR)); BILIRUBIN NEGATIVE; BLOOD NEGATIVE; COLOR AMBER ((YELLOW)); GLUCOSE (STRIP) >=500; KETONES 20; LEUKOCYTES NEGATIVE; NITRITE NEGATIVE; PROTEIN (STRIP) NEGATIVE; SPECIFIC GRAVITY 1.022 (1.000-1.030)
[2017-12-19 07:53] LABS: BACTERIA RARE /HPF; CALCIUM OXALATE CRYSTALS 1+ /HPF; EPITHELIAL CELLS NONE SEEN /HPF; MUCUS 4+ /LPF; RED BLOOD CELLS 0-5 /HPF (0-5); UCUL ADDED? YES
[2017-12-19] MEDS ORDERED: FOLIC ACID0.4 MG PO (09:34)
[2017-12-19] MEDS ORDERED: PREDNISONE20 MG PO (09:37)
[2017-12-19] MEDS ORDERED: MORPHINE SULFAT15 M1 PO (09:37)
[2017-12-19] MEDS ORDERED: GABAPENTIN300 MG PO (09:38)
[2017-12-19] MEDS ORDERED: TAMSULOSIN HCL0.4 MG PO (09:38)
[2017-12-19] MEDS ORDERED: K-DUR20 MEQ PO (09:40)
[2017-12-19 16:09] VITALS: BP 134/73
[2017-12-19 19:19] VITALS: BP 105/69
[2017-12-19 19:45] VITALS: BP 110/80
[2017-12-19 23:49] VITALS: BP 117/73
[2017-12-20 04:32] VITALS: BP 123/67
[2017-12-20 05:47] LABS: HEMOGLOBIN 9.4 G/DL (12.5-16.6); MCH 28.5 PG (29.0-34.0); MCHC 31.3 G/DL (30.0-36.0); MCV 90.9 FL (86-99); RBC DIS.WIDTH-CV 21.2 % (11.8-14.6); WHITE BLOOD COUNT 3.2 K/uL (4.1-10.2)
[2017-12-20 06:14] LABS: ALBUMIN 2.8 G/DL (3.2-4.8); ALKALINE PHOSPHATASE 106 IU/L (3-129); ALT (GPT) 22 IU/L (3-49); AST (GOT) 44 IU/L (2-34); CHLORIDE 105 MEQ/L (99-109); CREATININE 0.5 MG/DL (0.6-1.3); GFR ESTIMATE (CALCULATED) > 59 mL/min/ (58.99-99999); GLUCOSE 170 mg/dL (70-99); POTASSIUM 4.1 MEQ/L (3.7-5.4); SODIUM 137 MEQ/L (136-147); TOTAL BILIRUBIN 3.6 MG/DL (0.0-1.0); TOTAL PROTEIN 6.3 G/DL (6.4-8.3); UREA NITROGEN (BUN) 10 mg/dL (9-23)
[2017-12-20 06:18] LABS: IMM.PLATELET FRACTION 13.9 (1-7); PLAT.SUFFICIENCY VERY DECREASED; PLATELET COUNT 31 K/uL (156-360)
[2017-12-20 07:31] VITALS: BP 126/74
[2017-12-20 11:46] VITALS: BP 127/76
[2017-12-20 17:25] LABS: APPEARANCE CLEAR/COLORLESS; CSF TUBE NUMBER TUBE #4; RED CELL COUNT 2 /MM^3 (0-1); WHITE CELL COUNT 4 /MM^3 (0-5)
[2017-12-20 17:32] LABS: CSF PROTEIN 44 mg/dL (15-45)
[2017-12-20 17:37] LABS: GLUCOSE, CSF 126 mg/dL (40-80)
[2017-12-20 18:18] LABS: CSF EOSINOPHILS 0 % (0-25); MONONUCLEAR WBC'S 84 % (50-90); POLYNUCLEAR WBC'S 16 % (0-3)
[2017-12-20 20:00] VITALS: BP 118/72
[2017-12-21 01:56] VITALS: BP 115/74
[2017-12-21 04:44] VITALS: BP 123/76
[2017-12-21 07:16] VITALS: BP 133/86
[2017-12-21 07:18] LABS: HEMATOCRIT 30.5 % (38.0-50.0); HEMOGLOBIN 9.5 G/DL (12.5-16.6); MCH 28.8 PG (29.0-34.0); MCHC 31.1 G/DL (30.0-36.0); MCV 92.4 FL (86-99); RBC DIS.WIDTH-CV 21.4 % (11.8-14.6); RBC DIS.WIDTH-SD 72.2 % (39-53); WHITE BLOOD COUNT 4.5 K/uL (4.1-10.2)
[2017-12-21 07:35] LABS: IMM.PLATELET FRACTION 16.4 (1-7); PLAT.SUFFICIENCY DECREASED; PLATELET COUNT 33 K/uL (156-360)
[2017-12-21 08:41] LABS: FOLIC ACID (FOLATE) 12.5 NG/ML (5.0-22.0)
[2017-12-21] MEDS ORDERED: DOXYCYCLINE HY100 M3 PO (11:58)
[2017-12-21] MEDS ORDERED: NICOTINE PATCH1 EAC1 TD (11:58)
[2017-12-21] MEDS ORDERED: PREDNISONE20 MG PO (12:00)
== END 2017-12-21 13:28 | disposition home health service (06) | DRG 52 ==
LOC: EME → EDBD 01:08 → EME 01:08 → EDOF 12:50 → 5SOUTH 12:50 → ENRESERV 12:52 → 5SOUTH 15:48
PROVIDERS: Emergency Medicine; Internal Medicine; Physician Assistant; Psychiatry & Neurology Neurology; Psychiatry & Neurology Psychiatry
PROC: 5A09357 Assistance with Respiratory Ventilation, Less than 24 Consecutive Hours, Continuous Positive Airway Pressure (ICD-10-PCS; 2017-12-19)
PROC: 009U3ZX Drainage of Spinal Canal, Percutaneous Approach, Diagnostic (ICD-10-PCS; principal; 2017-12-20)
DX: G82.20 Paraplegia, unspecified (principal); J44.0 Chronic obstructive pulmonary disease with (acute) lower respiratory infection; J44.1 Chronic obstructive pulmonary disease with (acute) exacerbation; J20.9 Acute bronchitis, unspecified; K21.9 Gastro-esophageal reflux disease without esophagitis; K72.90 Hepatic failure, unspecified without coma; K76.6 Portal hypertension; K74.60 Unspecified cirrhosis of liver; B18.2 Chronic viral hepatitis C; D61.818 Other pancytopenia; E11.9 Type 2 diabetes mellitus without complications; F10.20 Alcohol dependence, uncomplicated; F32.9 Major depressive disorder, single episode, unspecified; F17.200 Nicotine dependence, unspecified, uncomplicated; I25.2 Old myocardial infarction; M79.7 Fibromyalgia; F41.9 Anxiety disorder, unspecified; M48.02 Spinal stenosis, cervical region
CPT/HCPCS: 36600; 62270; 70551; 71045; 72141; 72146; 72148; 77003; 80048; 80053; 80076; 81003; 82607; 82746; 82803; 82945; 82948; 83605; 83690; 84157; 85025; 85027; 85651; 86140; 87040; 87070; 87076; 87086; 87185; 87205; 87502; 87801; 89051; 93005; 94640; 94640 76; 94660; 94799; 97530 GP; 99202; 99281; 99285; J0696; J1100; J1650; J2060; J2270; J2930; J7512; J7644

== ENCOUNTER → 2018-01-02 | Outpatient (CLI) | payer OTHER ==
[~2018-01-02] MED LIST changes: +DOXYCYCLINE HY100 M3 PO; +FLOMAX0.4 MG PO; +FOLIC ACID0.4 MG PO; +GABAPENTIN300 MG PO; +KLOR-CON M2020 MEQ PO; +MAGNESIUM OXID500 M1 PO; +MORPHINE SULFAT15 M1 PO; +PROTONIX40 MG PO; +TAMSULOSIN HCL0.4 MG PO
== END | disposition home or self-care (01) ==
LOC: RAD 12-11 08:15
PROC: 0W9G3ZZ Drainage of Peritoneal Cavity, Percutaneous Approach (ICD-10-PCS; principal; 2018-01-02)
DX: K70.31 Alcoholic cirrhosis of liver with ascites (principal); K72.90 Hepatic failure, unspecified without coma
CPT/HCPCS: 49083

== ENCOUNTER → 2018-01-07 | Outpatient (CLI) | payer OTHER | END | disposition home or self-care (01) | LOC: RAD 08:08 | PROC: 0W9G3ZZ Drainage of Peritoneal Cavity, Percutaneous Approach (ICD-10-PCS; principal; 2018-01-07) | DX: K70.31 Alcoholic cirrhosis of liver with ascites (principal); K72.90 Hepatic failure, unspecified without coma | CPT/HCPCS: 49083 ==

== ENCOUNTER → 2018-01-13 | Outpatient (CLI) | payer OTHER | END | disposition home or self-care (01) | LOC: RAD 08:09 | PROC: 0W9G3ZZ Drainage of Peritoneal Cavity, Percutaneous Approach (ICD-10-PCS; principal; 2018-01-13) | DX: K70.31 Alcoholic cirrhosis of liver with ascites (principal); K72.90 Hepatic failure, unspecified without coma | CPT/HCPCS: 49083 ==

== ENCOUNTER → 2018-01-16 | Outpatient (CLI) | payer OTHER | END | disposition home or self-care (01) | LOC: RAD 08:19 | PROC: 0W9G3ZZ Drainage of Peritoneal Cavity, Percutaneous Approach (ICD-10-PCS; principal; 2018-01-16) | DX: K70.31 Alcoholic cirrhosis of liver with ascites (principal); K72.90 Hepatic failure, unspecified without coma | CPT/HCPCS: 49083 ==

== ENCOUNTER → 2018-01-23 | Outpatient (CLI) | payer OTHER | END | disposition home or self-care (01) | LOC: RAD 12-18 08:15 | PROC: 0W9G3ZZ Drainage of Peritoneal Cavity, Percutaneous Approach (ICD-10-PCS; principal; 2018-01-23) | DX: K70.31 Alcoholic cirrhosis of liver with ascites (principal); K72.90 Hepatic failure, unspecified without coma | CPT/HCPCS: 49083 ==

== ENCOUNTER → 2018-01-30 | Outpatient (CLI) | payer OTHER | END | disposition home or self-care (01) | LOC: RAD 08:26 | PROC: 0W9G3ZZ Drainage of Peritoneal Cavity, Percutaneous Approach (ICD-10-PCS; principal; 2018-01-30) | DX: K70.31 Alcoholic cirrhosis of liver with ascites (principal); K72.90 Hepatic failure, unspecified without coma | CPT/HCPCS: 49083 ==

== ENCOUNTER → 2018-02-06 | Outpatient (CLI) | payer OTHER | END | disposition home or self-care (01) | LOC: RAD 08:23 | PROC: 0W9G3ZZ Drainage of Peritoneal Cavity, Percutaneous Approach (ICD-10-PCS; principal; 2018-02-06) | DX: K70.31 Alcoholic cirrhosis of liver with ascites (principal); K72.90 Hepatic failure, unspecified without coma | CPT/HCPCS: 49083 ==

== ENCOUNTER → 2018-02-13 | Outpatient (CLI) | payer OTHER | END | disposition home or self-care (01) | LOC: RAD 01-20 08:30 | PROC: 0W9G3ZZ Drainage of Peritoneal Cavity, Percutaneous Approach (ICD-10-PCS; principal; 2018-02-13) | DX: K70.31 Alcoholic cirrhosis of liver with ascites (principal); K72.90 Hepatic failure, unspecified without coma | CPT/HCPCS: 49083 ==

== ENCOUNTER → 2018-02-19 | Outpatient (CLI) | payer OTHER | END | disposition home or self-care (01) | LOC: RAD 02-03 08:30 | PROC: 0W9G3ZZ Drainage of Peritoneal Cavity, Percutaneous Approach (ICD-10-PCS; principal; 2018-02-19) | DX: K70.31 Alcoholic cirrhosis of liver with ascites (principal); K72.90 Hepatic failure, unspecified without coma | CPT/HCPCS: 49083 ==

== ENCOUNTER → 2018-02-25 | Outpatient (CLI) | payer OTHER | END | disposition home or self-care (01) | LOC: RAD 01-27 08:30 | PROC: 0W9G3ZZ Drainage of Peritoneal Cavity, Percutaneous Approach (ICD-10-PCS; principal; 2018-02-25) | DX: K70.31 Alcoholic cirrhosis of liver with ascites (principal); K72.90 Hepatic failure, unspecified without coma | CPT/HCPCS: 49083 ==

== ENCOUNTER → 2018-03-03 | Outpatient (CLI) | payer OTHER | END | disposition home or self-care (01) | LOC: RAD 08:15 | PROC: 0W9G3ZZ Drainage of Peritoneal Cavity, Percutaneous Approach (ICD-10-PCS; principal; 2018-03-03) | DX: K70.31 Alcoholic cirrhosis of liver with ascites (principal); K72.90 Hepatic failure, unspecified without coma | CPT/HCPCS: 49083 ==

== ENCOUNTER → 2018-03-06 | Outpatient (CLI) | payer OTHER | END | disposition home or self-care (01) | LOC: RAD 08:07 | PROC: 0W9G3ZZ Drainage of Peritoneal Cavity, Percutaneous Approach (ICD-10-PCS; principal; 2018-03-06) | DX: K70.31 Alcoholic cirrhosis of liver with ascites (principal); K72.90 Hepatic failure, unspecified without coma | CPT/HCPCS: 49083 ==

== ENCOUNTER → 2018-03-11 | Outpatient (CLI) | payer OTHER | END | disposition home or self-care (01) | LOC: RAD 13:30 | PROC: 0W9G3ZZ Drainage of Peritoneal Cavity, Percutaneous Approach (ICD-10-PCS; principal; 2018-03-11) | DX: K70.31 Alcoholic cirrhosis of liver with ascites (principal); K72.90 Hepatic failure, unspecified without coma | CPT/HCPCS: 49083 ==

== ENCOUNTER → 2018-03-13 | Outpatient (CLI) | payer OTHER | END | disposition home or self-care (01) | LOC: RAD 08:28 | PROC: 0W9G3ZZ Drainage of Peritoneal Cavity, Percutaneous Approach (ICD-10-PCS; principal; 2018-03-13) | DX: K70.31 Alcoholic cirrhosis of liver with ascites (principal); K72.90 Hepatic failure, unspecified without coma | CPT/HCPCS: 49083 ==

== ENCOUNTER → 2018-03-19 | Outpatient (CLI) | payer OTHER | END | disposition home or self-care (01) | LOC: RAD 03-18 08:15 | PROC: 0W9G3ZZ Drainage of Peritoneal Cavity, Percutaneous Approach (ICD-10-PCS; principal; 2018-03-19) | DX: K70.31 Alcoholic cirrhosis of liver with ascites (principal); K72.90 Hepatic failure, unspecified without coma | CPT/HCPCS: 49083 ==

== ENCOUNTER → 2018-03-27 | Outpatient (CLI) | payer OTHER | END | disposition home or self-care (01) | LOC: RAD 08:13 | PROC: 0WJG3ZZ Inspection of Peritoneal Cavity, Percutaneous Approach (ICD-10-PCS; principal; 2018-03-27) | DX: K70.31 Alcoholic cirrhosis of liver with ascites (principal); K72.90 Hepatic failure, unspecified without coma; Z53.09 Procedure and treatment not carried out because of other contraindication | CPT/HCPCS: 76705 ==

== ENCOUNTER 2018-04-03 22:40 | Observation (INO) | payer OTHER ==
[~2018-04-03] VITALS: Ht 172.7 cm; Wt 79.2 kg
[~2018-04-03 22:40] MED LIST changes: -ANTI-DIARRHEA2 MG PO; -AZITHROMYCIN500 M1 PO; -GLUCOMETER MC; -MEN'S MULTI-VI1 EACH PO; -MOTRIN IB200 MG PO; -PREDNISONE10 MG PO
[2018-04-03 23:11] LABS: HEMATOCRIT 31.2 % (38.0-50.0); HEMOGLOBIN 10.3 G/DL (12.5-16.6); MCH 32.1 PG (29.0-34.0); MCV 97.2 FL (86-99); RBC DIS.WIDTH-CV 18.7 % (11.8-14.6); RBC DIS.WIDTH-SD 63.8 % (39-53); RED BLOOD COUNT 3.21 M/uL (4.00-5.50); WHITE BLOOD COUNT 2.2 K/uL (4.1-10.2)
[2018-04-03 23:23] LABS: CHLORIDE 110 mEq/L (99-109); POTASSIUM 3.3 mEq/L (3.7-5.4); SODIUM 148 mEq/L (136-147)
[2018-04-03 23:25] LABS: GLUCOSE 109 mg/dL (70-99)
[2018-04-03 23:29] LABS: CREATININE 0.7 mg/dL (0.6-1.3); GFR ESTIMATE (CALCULATED) > 59 mL/min/ (58.99-99999)
[2018-04-03 23:30] LABS: UREA NITROGEN (BUN) 4 mg/dL (9-23)
[2018-04-03 23:39] LABS: TROP-I INTERPRETATION NEGATIVE; TROPONIN-I 0.02 ng/mL (0.0-0.30)
[2018-04-04 00:41] LABS: INTER. NORMALIZED RATIO 1.5
[2018-04-04 00:44] LABS: PTT 41.9 SEC (25-37)
[2018-04-04 00:56] LABS: IMM.PLATELET FRACTION 5.1 (1-7)
[2018-04-04 00:57] LABS: PLATELET COUNT 49 K/uL (156-360)
[2018-04-04 06:11] LABS: TROP-I INTERPRETATION NEGATIVE; TROPONIN-I 0.02 ng/mL (0.0-0.30)
[2018-04-04 06:14] VITALS: BP 108/63
[2018-04-04 07:28] VITALS: BP 105/55
[2018-04-04] MEDS ORDERED: MEN'S MULTI-VI1 EACH PO (11:41)
[2018-04-04] MEDS ORDERED: XIFAXAN550 MG PO (11:42)
[2018-04-04] MEDS ORDERED: KLOR-CON M2020 MEQ PO (11:43)
[2018-04-04] MEDS ORDERED: ANTI-DIARRHEA2 MG PO (11:44)
[2018-04-04] MEDS ORDERED: MOTRIN IB200 MG PO (11:44)
[2018-04-04 11:58] VITALS: BP 106/58
[2018-04-04 12:08] LABS: TROP-I INTERPRETATION NEGATIVE; TROPONIN-I 0.02 ng/mL (0.0-0.30)
[2018-04-04 13:59] LABS: CHLORIDE 100 MEQ/L (99-109); CREATININE 0.7 MG/DL (0.6-1.3); GFR ESTIMATE (CALCULATED) > 59 mL/min/ (58.99-99999); POTASSIUM 3.4 MEQ/L (3.7-5.4); SERUM ETHYL ALCOHOL 141 mg/dL; UREA NITROGEN (BUN) 6 mg/dL (9-23)
[2018-04-04 14:05] LABS: GLUCOSE 209 mg/dL (70-99); SODIUM 137 MEQ/L (136-147)
[2018-04-04] MEDS ORDERED: GLUCOMETER MC (14:30)
[2018-04-04] MEDS ORDERED: PREDNISONE10 MG PO (14:30)
[2018-04-04] MEDS ORDERED: AZITHROMYCIN500 M1 PO (14:30)
== END 2018-04-04 15:55 | disposition home or self-care (01) ==
LOC: EME 22:40 → 5SOUTH 04-04 04:30 → EDOF 04-04 04:30 → 5SOUTH 04-04 04:30 → ENRESERV 04-04 04:37 → 5SOUTH 04-04 06:05 → ENPENDDIS 04-04 14:35 → 5SOUTH 04-04 15:55
PROVIDERS: Hospitalist; Physician Assistant
DX: J44.1 Chronic obstructive pulmonary disease with (acute) exacerbation (principal); R07.89 Other chest pain; F10.220 Alcohol dependence with intoxication, uncomplicated; Y90.6 Blood alcohol level of 120-199 mg/100 ml; E11.9 Type 2 diabetes mellitus without complications; I25.10 Atherosclerotic heart disease of native coronary artery without angina pectoris; I51.7 Cardiomegaly; K74.60 Unspecified cirrhosis of liver; R18.8 Other ascites; R16.1 Splenomegaly, not elsewhere classified; B19.20 Unspecified viral hepatitis C without hepatic coma; G89.29 Other chronic pain; F32.9 Major depressive disorder, single episode, unspecified; F41.9 Anxiety disorder, unspecified; R60.0 Localized edema; D69.6 Thrombocytopenia, unspecified; Z87.19 Personal history of other diseases of the digestive system; Z90.49 Acquired absence of other specified parts of digestive tract; F17.210 Nicotine dependence, cigarettes, uncomplicated; Z88.2 Allergy status to sulfonamides; Z88.1 Allergy status to other antibiotic agents
CPT/HCPCS: 70490; 71046; 71275; 80048; 82948; 83880; 84484; 85027; 85610; 85730; 87070; 87205; 93005; 94640; 94640 76; 99202; 99281; 99285; G0378; G0480; J1815; J1940; J2930

== ENCOUNTER → 2018-04-03 | Outpatient (CLI) | payer OTHER ==
[~2018-04-03] MED LIST changes: +ANTI-DIARRHEA2 MG PO; +AZITHROMYCIN500 M1 PO; +GLUCOMETER MC; +MEN'S MULTI-VI1 EACH PO; +MOTRIN IB200 MG PO; +PREDNISONE10 MG PO
== END | disposition home or self-care (01) ==
LOC: RAD 03-20 08:15
PROC: 0WJG3ZZ Inspection of Peritoneal Cavity, Percutaneous Approach (ICD-10-PCS; principal; 2018-04-03)
DX: K70.31 Alcoholic cirrhosis of liver with ascites (principal); K72.90 Hepatic failure, unspecified without coma; Z53.09 Procedure and treatment not carried out because of other contraindication
CPT/HCPCS: 76705

== ENCOUNTER 2018-05-31 16:14 | Inpatient (IN) | payer OTHER ==
[~2018-05-31] VITALS: Ht 172.7 cm; Wt 76.7 kg
[~2018-05-31 16:14] MED LIST changes: +ADVAIR 250/501 DISK IH; +ANTI-DIARRHEA2 MG PO; +AZITHROMYCIN500 M1 PO; +GLUCOMETER MC; +MEN'S MULTI-VI1 EACH PO; +MOTRIN800 MG PO; +PREDNISONE10 MG PO; -SEREVENT DISKU50 MCG IH
[2018-05-31 16:59] LABS: HEMATOCRIT 25.2 % (38.0-50.0); MCH 35.7 PG (29.0-34.0); MCHC 34.5 G/DL (30.0-36.0); MCV 103.3 FL (86-99); RBC DIS.WIDTH-CV 15.8 % (11.8-14.6)
[2018-05-31 17:10] LABS: ALBUMIN 2.7 g/dL (3.2-4.8); CHLORIDE 102 mEq/L (99-109); POTASSIUM 4.8 mEq/L (3.7-5.4); SODIUM 133 mEq/L (136-147)
[2018-05-31 17:13] LABS: GLUCOSE 84 mg/dL (70-99); INTER. NORMALIZED RATIO 1.9; TOTAL PROTEIN 5.3 g/dL (6.4-8.3)
[2018-05-31 17:15] LABS: PTT 47.4 SEC (25-37); TOTAL BILIRUBIN 4.8 mg/dL (0.0-1.0)
[2018-05-31 17:16] LABS: ALKALINE PHOSPHATASE 92 IU/L (3-129); SERUM ETHYL ALCOHOL < 10 mg/dL
[2018-05-31 17:17] LABS: CREATININE 1.3 mg/dL (0.6-1.3); GFR ESTIMATE (CALCULATED) > 59 mL/min/ (58.99-99999)
[2018-05-31 17:18] LABS: AST (GOT) 53 IU/L (2-34); UREA NITROGEN (BUN) 21 mg/dL (9-23)
[2018-05-31 17:19] LABS: ALT (GPT) 17 IU/L (3-49)
[2018-05-31 17:20] LABS: LIPASE 9 U/L (1.0-51.0)
[2018-05-31 17:22] LABS: TROP-I INTERPRETATION NEGATIVE; TROPONIN-I 0.17 ng/mL (0.0-0.30)
[2018-05-31 17:44] LABS: HEMOGLOBIN 8.7 G/DL (12.5-16.6); RED BLOOD COUNT 2.44 M/uL (4.00-5.50)
[2018-05-31 18:08] LABS: IMM.PLATELET FRACTION 5.5 (1-7)
[2018-05-31 18:10] LABS: PLATELET COUNT 46 K/uL (156-360)
[2018-05-31 18:56] LABS: ABS NEUTROPHIL COUNT 12.7; ANISOCYTOSIS 2+; EOSINOPHIL ABS CT 0; MACROCYTES 1+; PLAT.SUFFICIENCY DECREASED; POIKILOCYTOSIS 1+
[2018-05-31 19:24] LABS: APPEARANCE CLEAR ((CLEAR)); BILIRUBIN NEGATIVE; BLOOD SMALL; COLOR AMBER ((YELLOW)); GLUCOSE (STRIP) NEGATIVE; KETONES NEGATIVE; LEUKOCYTES NEGATIVE; NITRITE NEGATIVE; PROTEIN (STRIP) 100; SPECIFIC GRAVITY 1.019 (1.000-1.030); UROBILINOGEN 0.2 MG/DL (0.2-1.0)
[2018-05-31 19:38] LABS: BACTERIA RARE /HPF; EPITHELIAL CELLS RARE /HPF; HYALINE CASTS 20-30 /LPF; MUCUS 1+ /LPF; RED BLOOD CELLS 0-5 /HPF (0-5); UCUL ADDED? NO; WHITE BLOOD CELLS 0-5 /HPF (0-5)
[2018-05-31 19:39] LABS: AMPHETAMINE NEGATIVE (500 ng/mL); BARBITURATES NEGATIVE (200 ng/mL); BENZODIAZEPINES NEGATIVE (150 ng/mL); BUPRENORPHINE PRESUMPTIVE POSITIVE (10 ng/mL); COCAINE NEGATIVE (150 ng/mL); METHADONE NEGATIVE (200 ng/mL); METHAMPHETAMINE NEGATIVE (500 ng/mL); OPIATES (MORPHINE) NEGATIVE (100 ng/mL); OXYCODONE NEGATIVE (100 ng/mL); PHENCYCLIDINE NEGATIVE (25 ng/mL); PROPOXYPHENE NEGATIVE (300 ng/mL); THC CANNABINOIDS NEGATIVE (50 ng/mL); TRICYCLIC ANTIDEPRESSANTS PRESUMPTIVE POSITIVE (300 ng/mL)
[2018-05-31 19:45] LABS: COMMENTS - BLOOD GASES C+; DEVICE VENT; FI02 100 %; SITE LR
[2018-05-31 19:46] LABS: CARBOXY HGB 3.9 % (0-5); INSPIRATION TIME 0.9 seconds; MECHANICAL RATE 22 resp/min; MODE AC+; O2 SATURATION (CALCULATED) 95.8 % (95-99); PCO2 35 mm Hg (35-45); PEEP 5 CM/H20; PO2 315 mm Hg (80-100); TIDAL VOLUME 500 ML; TOTAL RESP RATE 22 resp/min; pH 7.41 (7.35-7.45)
[2018-05-31 19:47] LABS: BASE EXCESS -2.1 mEq/L (-3 to +3); BICARBONATE 22.2 mEq/L (22-26)
[2018-05-31 23:00] VITALS: BP 101/62
[2018-05-31 23:02] VITALS: BP 104/66
[2018-06-01] VITALS (8 sets, daily range): BP systolic 73–127; BP diastolic 52–79
[2018-06-01 06:10] LABS: HEMATOCRIT 28.5 % (38.0-50.0); HEMOGLOBIN 9.5 G/DL (12.5-16.6); MCH 34.2 PG (29.0-34.0); MCHC 33.3 G/DL (30.0-36.0); MCV 102.5 FL (86-99); RBC DIS.WIDTH-CV 15.9 % (11.8-14.6); RBC DIS.WIDTH-SD 59.8 % (39-53); RED BLOOD COUNT 2.78 M/uL (4.00-5.50); WHITE BLOOD COUNT 13.2 K/uL (4.1-10.2)
[2018-06-01 06:11] LABS: PLATELET COUNT 70 K/uL (156-360)
[2018-06-01 06:13] LABS: INTER. NORMALIZED RATIO 1.7
[2018-06-01 06:34] LABS: TROP-I INTERPRETATION NEGATIVE; TROPONIN-I 0.23 ng/mL (0.0-0.30)
[2018-06-01 06:37] LABS: CHLORIDE 107 MEQ/L (99-109); CREATININE 1.2 MG/DL (0.6-1.3); GFR ESTIMATE (CALCULATED) > 59 mL/min/ (58.99-99999); MAGNESIUM 2.3 mg/dl (1.3-2.7); PHOSPHORUS 3.4 mg/dL (2.5-4.9); POTASSIUM 4.2 MEQ/L (3.7-5.4); SODIUM 136 MEQ/L (136-147); UREA NITROGEN (BUN) 22 mg/dL (9-23)
[2018-06-01 06:39] LABS: GLUCOSE 120 mg/dL (70-99)
[2018-06-01 13:06] LABS: TROP-I INTERPRETATION NEGATIVE; TROPONIN-I 0.17 ng/mL (0.0-0.30)
[2018-06-01 18:49] LABS: TROP-I INTERPRETATION NEGATIVE; TROPONIN-I 0.13 ng/mL (0.0-0.30)
[2018-06-02] VITALS: BP 113/76
[2018-06-02 05:34] LABS: HEMATOCRIT 26.7 % (38.0-50.0); MCH 34.7 PG (29.0-34.0); MCHC 33.7 G/DL (30.0-36.0); MCV 103.1 FL (86-99); PLATELET COUNT 71 K/uL (156-360); RBC DIS.WIDTH-CV 16.1 % (11.8-14.6); RBC DIS.WIDTH-SD 61.1 % (39-53); RED BLOOD COUNT 2.59 M/uL (4.00-5.50); WHITE BLOOD COUNT 6.7 K/uL (4.1-10.2)
[2018-06-02 05:50] LABS: INTER. NORMALIZED RATIO 1.6
[2018-06-02 06:00] VITALS: BP 103/68
[2018-06-02 06:01] LABS: CHLORIDE 110 MEQ/L (99-109); GFR ESTIMATE (CALCULATED) > 59 mL/min/ (58.99-99999); GLUCOSE 108 mg/dL (70-99); MAGNESIUM 2.1 mg/dl (1.3-2.7); PHOSPHORUS 2.5 mg/dL (2.5-4.9); POTASSIUM 4.3 MEQ/L (3.7-5.4); SODIUM 140 MEQ/L (136-147); UREA NITROGEN (BUN) 13 mg/dL (9-23)
[2018-06-02 09:30] VITALS: BP 113/73
[2018-06-02 18:06] VITALS: BP 89/60
[2018-06-02 18:18] LABS: ALBUMIN 2.4 G/DL (3.2-4.8); ALKALINE PHOSPHATASE 77 IU/L (3-129); ALT (GPT) 15 IU/L (3-49); AST (GOT) 43 IU/L (2-34); DIRECT BILIRUBIN 1.9 mg/dL (0.0-0.3); TOTAL BILIRUBIN 3.6 MG/DL (0.0-1.0)
[2018-06-02 19:00] VITALS: BP 92/63
[2018-06-03] VITALS (10 sets, daily range): BP systolic 95–117; BP diastolic 54–73
[2018-06-03 05:38] LABS: HEMATOCRIT 27.7 % (38.0-50.0); HEMOGLOBIN 9.4 G/DL (12.5-16.6); MCH 34.9 PG (29.0-34.0); MCHC 33.9 G/DL (30.0-36.0); PLATELET COUNT 65 K/uL (156-360); RBC DIS.WIDTH-SD 60.2 % (39-53); RED BLOOD COUNT 2.69 M/uL (4.00-5.50); WHITE BLOOD COUNT 5.5 K/uL (4.1-10.2)
[2018-06-03 05:54] LABS: CHLORIDE 111 MEQ/L (99-109); CREATININE 0.9 MG/DL (0.6-1.3); GFR ESTIMATE (CALCULATED) > 59 mL/min/ (58.99-99999); GLUCOSE 101 mg/dL (70-99); MAGNESIUM 1.8 mg/dl (1.3-2.7); PHOSPHORUS 3.1 mg/dL (2.5-4.9); POTASSIUM 4.3 MEQ/L (3.7-5.4); SODIUM 141 MEQ/L (136-147); UREA NITROGEN (BUN) 10 mg/dL (9-23)
[2018-06-03 05:56] LABS: INTER. NORMALIZED RATIO 1.5
[2018-06-03 11:40] LABS: DEVICE VENT; FI02 30 %; MODE SPONT PS; PEEP 5 CM/H20; PRES. SUPPORT 5 CM/H2O; SITE ARTERIAL LINE; TIDAL VOLUME 704 ML; TOTAL RESP RATE 14 resp/min
[2018-06-03 11:41] LABS: pH 7.42 (7.35-7.45)
[2018-06-03 11:45] LABS: PCO2 33 mm Hg (35-45); PO2 78 mm Hg (80-100)
[2018-06-03 11:46] LABS: BASE EXCESS -2.5 mEq/L (-3 to +3); BICARBONATE 21.4 mEq/L (22-26); CARBOXY HGB 3.9 % (0-5); METHEMOGLOBIN 0.2 % (0-1.5); O2 SATURATION (CALCULATED) 98.4 % (95-99)
[2018-06-04] VITALS: BP 114/64
[2018-06-04 05:28] LABS: HEMATOCRIT 27.2 % (38.0-50.0); HEMOGLOBIN 9.3 G/DL (12.5-16.6); MCH 34.4 PG (29.0-34.0); MCHC 34.2 G/DL (30.0-36.0); MCV 100.7 FL (86-99); PLATELET COUNT 61 K/uL (156-360); RBC DIS.WIDTH-CV 15.5 % (11.8-14.6); RBC DIS.WIDTH-SD 56.5 % (39-53); WHITE BLOOD COUNT 5.4 K/uL (4.1-10.2)
[2018-06-04 05:29] LABS: BASOPHIL (%) 0.2 % (0-1); EOSINOPHIL (%) 1.9 % (0-5); EOSINOPHIL COUNT 0.1 K/uL (0-0.3); IMMATURE GRANULOCYTE (%) 0.4 % (0.0-0.7); LYMPHOCYTE (%) 12.5 % (15-42); LYMPHOCYTE COUNT 0.7 K/uL (1.0-2.8); MONOCYTE (%) 9.5 % (3-12); MONOCYTE COUNT 0.5 K/uL (0-0.8); NEUTROPHIL (%) 75.5 % (45-76)
[2018-06-04 05:50] LABS: CHLORIDE 107 MEQ/L (99-109); GFR ESTIMATE (CALCULATED) > 59 mL/min/ (58.99-99999); GLUCOSE 138 mg/dL (70-99); MAGNESIUM 1.6 mg/dl (1.3-2.7); PHOSPHORUS 3.7 mg/dL (2.5-4.9); POTASSIUM 3.8 MEQ/L (3.7-5.4); SODIUM 141 MEQ/L (136-147); UREA NITROGEN (BUN) 9 mg/dL (9-23)
[2018-06-04 05:54] LABS: INTER. NORMALIZED RATIO 1.5
[2018-06-04 07:00] VITALS: BP 108/80
[2018-06-04 11:35] LABS: SITE LEFTALINE
[2018-06-04 11:36] LABS: BASE EXCESS 0.8 mEq/L (-3 to +3); BICARBONATE 25.3 mEq/L (22-26); COMMENTS - BLOOD GASES C+; DEVICE 980; FI02 40 %; METHEMOGLOBIN 0.8 % (0-1.5); MODE TC; PCO2 39 mm Hg (35-45); PO2 84 mm Hg (80-100); pH 7.42 (7.35-7.45)
[2018-06-04 16:00] VITALS: BP 95/52
[2018-06-05] VITALS (15 sets, daily range): BP systolic 80–138; BP diastolic 62–92
[2018-06-05 05:23] LABS: BASOPHIL (%) 0.2 % (0-1); EOSINOPHIL (%) 3.3 % (0-5); EOSINOPHIL COUNT 0.2 K/uL (0-0.3); HEMATOCRIT 26.5 % (38.0-50.0); HEMOGLOBIN 9.1 G/DL (12.5-16.6); IMMATURE GRANULOCYTE (%) 0.4 % (0.0-0.7); LYMPHOCYTE (%) 10.8 % (15-42); LYMPHOCYTE COUNT 0.5 K/uL (1.0-2.8); MCH 34.3 PG (29.0-34.0); MCHC 34.3 G/DL (30.0-36.0); MONOCYTE (%) 8.5 % (3-12); MONOCYTE COUNT 0.4 K/uL (0-0.8); NEUTROPHIL (%) 76.8 % (45-76); NEUTROPHIL COUNT 3.7 K/uL (1.8-6.4); PLATELET COUNT 53 K/uL (156-360); RBC DIS.WIDTH-CV 15.6 % (11.8-14.6); RBC DIS.WIDTH-SD 55.9 % (39-53); RED BLOOD COUNT 2.65 M/uL (4.00-5.50); WHITE BLOOD COUNT 4.8 K/uL (4.1-10.2)
[2018-06-05 06:17] LABS: CHLORIDE 107 MEQ/L (99-109); CREATININE 0.8 MG/DL (0.6-1.3); GFR ESTIMATE (CALCULATED) > 59 mL/min/ (58.99-99999); GLUCOSE 117 mg/dL (70-99); MAGNESIUM 1.5 mg/dl (1.3-2.7); PHOSPHORUS 2.9 mg/dL (2.5-4.9); POTASSIUM 3.6 MEQ/L (3.7-5.4); SODIUM 140 MEQ/L (136-147); UREA NITROGEN (BUN) 7 mg/dL (9-23)
[2018-06-06] VITALS (24 sets, daily range): BP systolic 78–118; BP diastolic 57–92
[2018-06-06 06:15] LABS: HEMOGLOBIN 9.2 G/DL (12.5-16.6); MCH 34.2 PG (29.0-34.0); MCHC 34.1 G/DL (30.0-36.0); MCV 100.4 FL (86-99); PLATELET COUNT 58 K/uL (156-360); RBC DIS.WIDTH-CV 15.8 % (11.8-14.6); RBC DIS.WIDTH-SD 55.7 % (39-53); RED BLOOD COUNT 2.69 M/uL (4.00-5.50); WHITE BLOOD COUNT 3.6 K/uL (4.1-10.2)
[2018-06-06 06:39] LABS: CHLORIDE 104 MEQ/L (99-109); CREATININE 0.7 MG/DL (0.6-1.3); GFR ESTIMATE (CALCULATED) > 59 mL/min/ (58.99-99999); GLUCOSE 113 mg/dL (70-99); MAGNESIUM 1.5 mg/dl (1.3-2.7); POTASSIUM 3.7 MEQ/L (3.7-5.4); SODIUM 140 MEQ/L (136-147); UREA NITROGEN (BUN) 7 mg/dL (9-23)
[2018-06-07] VITALS (21 sets, daily range): BP systolic 79–108; BP diastolic 47–66
[2018-06-07 05:38] LABS: HEMATOCRIT 32.2 % (38.0-50.0); HEMOGLOBIN 10.9 G/DL (12.5-16.6); MCH 34.4 PG (29.0-34.0); MCHC 33.9 G/DL (30.0-36.0); MCV 101.6 FL (86-99); PLATELET COUNT 73 K/uL (156-360); RBC DIS.WIDTH-CV 16.6 % (11.8-14.6); RBC DIS.WIDTH-SD 59.3 % (39-53); RED BLOOD COUNT 3.17 M/uL (4.00-5.50); WHITE BLOOD COUNT 5.1 K/uL (4.1-10.2)
[2018-06-07 06:15] LABS: CHLORIDE 104 MEQ/L (99-109); CREATININE 1.1 MG/DL (0.6-1.3); GFR ESTIMATE (CALCULATED) > 59 mL/min/ (58.99-99999); GLUCOSE 108 mg/dL (70-99); MAGNESIUM 1.6 mg/dl (1.3-2.7); PHOSPHORUS 3.2 mg/dL (2.5-4.9); POTASSIUM 4.1 MEQ/L (3.7-5.4); SODIUM 138 MEQ/L (136-147); UREA NITROGEN (BUN) 8 mg/dL (9-23)
[2018-06-07 12:01] LABS: HIGH-SENS C-REACTIVE PROTEIN 6.72 MG/DL (0.02-0.20)
[2018-06-07] MEDS ORDERED: BUPRENORPHIN-N1 EACH SL (14:03)
[2018-06-07] MEDS ORDERED: FLUOXETINE HCL40 MG PO (14:39)
[2018-06-07] MEDS ORDERED: NALTREXONE HCL50 MG PO (14:40)
[2018-06-07] MEDS ORDERED: HYDROXYZINE PAM25 MG PO (14:42)
[2018-06-07] MEDS ORDERED: HYDROXYZINE PAM50 MG PO (14:42)
[2018-06-07 16:34] LABS: UR CREATININE CONCENTRATION 431.3 MG/DL
[2018-06-08] VITALS (19 sets, daily range): BP systolic 83–114; BP diastolic 49–83
[2018-06-08 06:45] LABS: BASOPHIL (%) 0 % (0-1); EOSINOPHIL (%) 1.4 % (0-5); EOSINOPHIL COUNT 0.1 K/uL (0-0.3); IMMATURE GRANULOCYTE (%) 0.3 % (0.0-0.7); LYMPHOCYTE (%) 9.8 % (15-42); LYMPHOCYTE COUNT 0.6 K/uL (1.0-2.8); MCH 34.9 PG (29.0-34.0); MCHC 33.3 G/DL (30.0-36.0); MCV 104.8 FL (86-99); MONOCYTE (%) 10.1 % (3-12); MONOCYTE COUNT 0.6 K/uL (0-0.8); NEUTROPHIL (%) 78.4 % (45-76); NEUTROPHIL COUNT 4.6 K/uL (1.8-6.4); PLATELET COUNT 56 K/uL (156-360); RBC DIS.WIDTH-CV 17.9 % (11.8-14.6); RBC DIS.WIDTH-SD 64.5 % (39-53); WHITE BLOOD COUNT 5.9 K/uL (4.1-10.2)
[2018-06-08 06:49] LABS: RED BLOOD COUNT 2.29 M/uL (4.00-5.50)
[2018-06-08 07:02] LABS: ALBUMIN 2.2 G/DL (3.2-4.8); ALKALINE PHOSPHATASE 57 IU/L (3-129); ALT (GPT) 18 IU/L (3-49); AST (GOT) 47 IU/L (2-34); CHLORIDE 109 MEQ/L (99-109); CREATININE 0.9 MG/DL (0.6-1.3); GFR ESTIMATE (CALCULATED) > 59 mL/min/ (58.99-99999); GLUCOSE 96 mg/dL (70-99); HIGH-SENS C-REACTIVE PROTEIN 7.51 MG/DL (0.02-0.20); POTASSIUM 3.9 MEQ/L (3.7-5.4); SODIUM 140 MEQ/L (136-147); TOTAL BILIRUBIN 3.1 MG/DL (0.0-1.0); TOTAL PROTEIN 4.6 G/DL (6.4-8.3); UREA NITROGEN (BUN) 13 mg/dL (9-23)
[2018-06-08 07:05] LABS: MAGNESIUM 2.2 mg/dl (1.3-2.7)
[2018-06-09] VITALS (24 sets, daily range): BP systolic 96–126; BP diastolic 57–75
[2018-06-09 06:13] LABS: BASOPHIL (%) 0.2 % (0-1); EOSINOPHIL (%) 1.4 % (0-5); EOSINOPHIL COUNT 0.1 K/uL (0-0.3); HEMATOCRIT 22.9 % (38.0-50.0); HEMOGLOBIN 7.6 G/DL (12.5-16.6); IMMATURE GRANULOCYTE (%) 0.4 % (0.0-0.7); LYMPHOCYTE COUNT 0.5 K/uL (1.0-2.8); MCH 34.4 PG (29.0-34.0); MCHC 33.2 G/DL (30.0-36.0); MCV 103.6 FL (86-99); MONOCYTE COUNT 0.5 K/uL (0-0.8); NEUTROPHIL COUNT 3.8 K/uL (1.8-6.4); PLATELET COUNT 59 K/uL (156-360); RBC DIS.WIDTH-CV 18.5 % (11.8-14.6); RBC DIS.WIDTH-SD 65.6 % (39-53); RED BLOOD COUNT 2.21 M/uL (4.00-5.50); WHITE BLOOD COUNT 4.9 K/uL (4.1-10.2)
[2018-06-09 06:43] LABS: ALBUMIN 2.3 G/DL (3.2-4.8); ALKALINE PHOSPHATASE 55 IU/L (3-129); ALT (GPT) 18 IU/L (3-49); AST (GOT) 45 IU/L (2-34); CHLORIDE 107 MEQ/L (99-109); CREATININE 0.7 MG/DL (0.6-1.3); GFR ESTIMATE (CALCULATED) > 59 mL/min/ (58.99-99999); GLUCOSE 80 mg/dL (70-99); PHOSPHORUS 2.2 mg/dL (2.5-4.9); POTASSIUM 3.4 MEQ/L (3.7-5.4); SODIUM 141 MEQ/L (136-147); TOTAL BILIRUBIN 3.1 MG/DL (0.0-1.0); TOTAL PROTEIN 4.8 G/DL (6.4-8.3); UREA NITROGEN (BUN) 8 mg/dL (9-23)
[2018-06-09 07:03] LABS: MAGNESIUM 1.7 mg/dl (1.3-2.7)
[2018-06-10] VITALS (23 sets, daily range): BP systolic 82–118; BP diastolic 60–70
[2018-06-10 05:22] LABS: BASOPHIL (%) 0.2 % (0-1); EOSINOPHIL (%) 1.6 % (0-5); EOSINOPHIL COUNT 0.1 K/uL (0-0.3); HEMATOCRIT 24.4 % (38.0-50.0); HEMOGLOBIN 8.1 G/DL (12.5-16.6); IMMATURE GRANULOCYTE (%) 0.2 % (0.0-0.7); LYMPHOCYTE (%) 11.1 % (15-42); LYMPHOCYTE COUNT 0.5 K/uL (1.0-2.8); MCH 34.5 PG (29.0-34.0); MCHC 33.2 G/DL (30.0-36.0); MCV 103.8 FL (86-99); MONOCYTE (%) 8.6 % (3-12); MONOCYTE COUNT 0.4 K/uL (0-0.8); NEUTROPHIL (%) 78.3 % (45-76); NEUTROPHIL COUNT 3.5 K/uL (1.8-6.4); PLATELET COUNT 68 K/uL (156-360); RBC DIS.WIDTH-CV 18.9 % (11.8-14.6); RBC DIS.WIDTH-SD 69.1 % (39-53); RED BLOOD COUNT 2.35 M/uL (4.00-5.50); WHITE BLOOD COUNT 4.4 K/uL (4.1-10.2)
[2018-06-10 06:11] LABS: ALBUMIN 2.2 G/DL (3.2-4.8); ALKALINE PHOSPHATASE 57 IU/L (3-129); ALT (GPT) 16 IU/L (3-49); AST (GOT) 40 IU/L (2-34); CHLORIDE 105 MEQ/L (99-109); CREATININE 0.6 MG/DL (0.6-1.3); GFR ESTIMATE (CALCULATED) > 59 mL/min/ (58.99-99999); GLUCOSE 86 mg/dL (70-99); MAGNESIUM 1.6 mg/dl (1.3-2.7); POTASSIUM 3.8 MEQ/L (3.7-5.4); SODIUM 140 MEQ/L (136-147); TOTAL BILIRUBIN 3.2 MG/DL (0.0-1.0); TOTAL PROTEIN 4.8 G/DL (6.4-8.3); UREA NITROGEN (BUN) 7 mg/dL (9-23)
[2018-06-10 06:12] LABS: PHOSPHORUS 3.1 mg/dL (2.5-4.9)
[2018-06-10 08:14] LABS: FOLIC ACID (FOLATE) 14.7 NG/ML (5.0-22.0)
[2018-06-11] VITALS (23 sets, daily range): BP systolic 79–119; BP diastolic 38–81
[2018-06-11 05:16] LABS: BASOPHIL (%) 0.3 % (0-1); EOSINOPHIL (%) 1.8 % (0-5); EOSINOPHIL COUNT 0.1 K/uL (0-0.3); HEMATOCRIT 25.9 % (38.0-50.0); HEMOGLOBIN 8.6 G/DL (12.5-16.6); IMMATURE GRANULOCYTE (%) 0.3 % (0.0-0.7); LYMPHOCYTE (%) 14.6 % (15-42); LYMPHOCYTE COUNT 0.6 K/uL (1.0-2.8); MCH 34.3 PG (29.0-34.0); MCHC 33.2 G/DL (30.0-36.0); MCV 103.2 FL (86-99); MONOCYTE (%) 14.1 % (3-12); MONOCYTE COUNT 0.6 K/uL (0-0.8); NEUTROPHIL (%) 68.9 % (45-76); NEUTROPHIL COUNT 2.7 K/uL (1.8-6.4); PLATELET COUNT 74 K/uL (156-360); RBC DIS.WIDTH-CV 19.9 % (11.8-14.6); RBC DIS.WIDTH-SD 72.3 % (39-53); RED BLOOD COUNT 2.51 M/uL (4.00-5.50); WHITE BLOOD COUNT 3.9 K/uL (4.1-10.2)
[2018-06-11 05:59] LABS: ALBUMIN 2.4 G/DL (3.2-4.8); ALKALINE PHOSPHATASE 58 IU/L (3-129); ALT (GPT) 16 IU/L (3-49); AST (GOT) 39 IU/L (2-34); CHLORIDE 105 MEQ/L (99-109); CREATININE 0.7 MG/DL (0.6-1.3); GFR ESTIMATE (CALCULATED) > 59 mL/min/ (58.99-99999); GLUCOSE 92 mg/dL (70-99); MAGNESIUM 1.5 mg/dl (1.3-2.7); PHOSPHORUS 2.4 mg/dL (2.5-4.9); POTASSIUM 3.5 MEQ/L (3.7-5.4); SODIUM 141 MEQ/L (136-147); TOTAL BILIRUBIN 3.7 MG/DL (0.0-1.0); UREA NITROGEN (BUN) 6 mg/dL (9-23)
[2018-06-12] VITALS (24 sets, daily range): BP systolic 90–113; BP diastolic 55–74
[2018-06-12 05:42] LABS: C DIFF TOXIN NEGATIVE (NEGATIVE)
[2018-06-12 05:46] LABS: HEMATOCRIT 26.4 % (38.0-50.0); HEMOGLOBIN 8.6 G/DL (12.5-16.6); MCH 34.7 PG (29.0-34.0); MCHC 32.6 G/DL (30.0-36.0); MCV 106.5 FL (86-99); PLATELET COUNT 82 K/uL (156-360); RBC DIS.WIDTH-CV 20.9 % (11.8-14.6); RED BLOOD COUNT 2.48 M/uL (4.00-5.50); WHITE BLOOD COUNT 3.7 K/uL (4.1-10.2)
[2018-06-12 06:04] LABS: BASOPHIL (%) 0.3 % (0-1); EOSINOPHIL (%) 2.4 % (0-5); EOSINOPHIL COUNT 0.1 K/uL (0-0.3); IMMATURE GRANULOCYTE (%) 0.5 % (0.0-0.7); LYMPHOCYTE (%) 14.9 % (15-42); LYMPHOCYTE COUNT 0.6 K/uL (1.0-2.8); MONOCYTE (%) 13.2 % (3-12); MONOCYTE COUNT 0.5 K/uL (0-0.8); NEUTROPHIL (%) 68.7 % (45-76); NEUTROPHIL COUNT 2.5 K/uL (1.8-6.4)
[2018-06-12 06:15] LABS: ALBUMIN 2.3 G/DL (3.2-4.8); ALKALINE PHOSPHATASE 63 IU/L (3-129); ALT (GPT) 13 IU/L (3-49); AST (GOT) 32 IU/L (2-34); CHLORIDE 104 MEQ/L (99-109); CREATININE 0.7 MG/DL (0.6-1.3); GFR ESTIMATE (CALCULATED) > 59 mL/min/ (58.99-99999); GLUCOSE 110 mg/dL (70-99); MAGNESIUM 1.6 mg/dl (1.3-2.7); PHOSPHORUS 2.9 mg/dL (2.5-4.9); POTASSIUM 3.4 MEQ/L (3.7-5.4); SODIUM 138 MEQ/L (136-147); TOTAL BILIRUBIN 3.6 MG/DL (0.0-1.0); TOTAL PROTEIN 5.2 G/DL (6.4-8.3); UREA NITROGEN (BUN) 6 mg/dL (9-23)
[2018-06-13] VITALS (25 sets, daily range): BP systolic 86–110; BP diastolic 58–77
[2018-06-13 07:01] LABS: HEMATOCRIT 26.5 % (38.0-50.0); HEMOGLOBIN 8.5 G/DL (12.5-16.6); MCH 34.6 PG (29.0-34.0); MCHC 32.1 G/DL (30.0-36.0); MCV 107.7 FL (86-99); PLATELET COUNT 69 K/uL (156-360); RBC DIS.WIDTH-CV 21.2 % (11.8-14.6); RBC DIS.WIDTH-SD 78.2 % (39-53); RED BLOOD COUNT 2.46 M/uL (4.00-5.50); WHITE BLOOD COUNT 3.2 K/uL (4.1-10.2)
[2018-06-13 07:25] LABS: ALBUMIN 2.4 G/DL (3.2-4.8); ALKALINE PHOSPHATASE 60 IU/L (3-129); ALT (GPT) 12 IU/L (3-49); AST (GOT) 31 IU/L (2-34); CHLORIDE 107 MEQ/L (99-109); CREATININE 0.8 MG/DL (0.6-1.3); GFR ESTIMATE (CALCULATED) > 59 mL/min/ (58.99-99999); GLUCOSE 118 mg/dL (70-99); MAGNESIUM 1.6 mg/dl (1.3-2.7); PHOSPHORUS 3.1 mg/dL (2.5-4.9); POTASSIUM 3.8 MEQ/L (3.7-5.4); SODIUM 141 MEQ/L (136-147); TOTAL PROTEIN 5.1 G/DL (6.4-8.3); UREA NITROGEN (BUN) 4 mg/dL (9-23)
[2018-06-13 07:27] LABS: ANISOCYTOSIS 2+; BASOPHIL (%) 0.3 % (0-1); EOSINOPHIL (%) 3.1 % (0-5); EOSINOPHIL COUNT 0.1 K/uL (0-0.3); IMMATURE GRANULOCYTE (%) 0.6 % (0.0-0.7); LYMPHOCYTE (%) 14.2 % (15-42); LYMPHOCYTE COUNT 0.5 K/uL (1.0-2.8); MACROCYTES 2+; MICROCYTOSIS 1+; MONOCYTE (%) 12.4 % (3-12); MONOCYTE COUNT 0.4 K/uL (0-0.8); NEUTROPHIL (%) 69.4 % (45-76); NEUTROPHIL COUNT 2.2 K/uL (1.8-6.4); POLYCHROMASIA 1+; TARGET CELLS 1+
[2018-06-14] VITALS (16 sets, daily range): BP systolic 85–108; BP diastolic 54–86
[2018-06-14 05:49] LABS: BASOPHIL (%) 0.3 % (0-1); EOSINOPHIL COUNT 0.1 K/uL (0-0.3); HEMATOCRIT 27.4 % (38.0-50.0); HEMOGLOBIN 8.8 G/DL (12.5-16.6); IMMATURE GRANULOCYTE (%) 0.3 % (0.0-0.7); LYMPHOCYTE (%) 18.5 % (15-42); LYMPHOCYTE COUNT 0.6 K/uL (1.0-2.8); MCH 35.3 PG (29.0-34.0); MCHC 32.1 G/DL (30.0-36.0); MONOCYTE (%) 13.2 % (3-12); MONOCYTE COUNT 0.4 K/uL (0-0.8); NEUTROPHIL (%) 64.7 % (45-76); PLATELET COUNT 74 K/uL (156-360); RBC DIS.WIDTH-CV 21.6 % (11.8-14.6); RBC DIS.WIDTH-SD 82.6 % (39-53); RED BLOOD COUNT 2.49 M/uL (4.00-5.50)
[2018-06-14 06:33] LABS: ALBUMIN 2.4 G/DL (3.2-4.8); ALKALINE PHOSPHATASE 59 IU/L (3-129); ALT (GPT) 12 IU/L (3-49); CHLORIDE 108 MEQ/L (99-109); CREATININE 0.7 MG/DL (0.6-1.3); GFR ESTIMATE (CALCULATED) > 59 mL/min/ (58.99-99999); GLUCOSE 113 mg/dL (70-99); MAGNESIUM 1.7 mg/dl (1.3-2.7); POTASSIUM 4.1 MEQ/L (3.7-5.4); SODIUM 142 MEQ/L (136-147); TOTAL BILIRUBIN 2.8 MG/DL (0.0-1.0); TOTAL PROTEIN 5.3 G/DL (6.4-8.3); UREA NITROGEN (BUN) 4 mg/dL (9-23)
[2018-06-14 06:39] LABS: AST (GOT) 52 IU/L (2-34); PHOSPHORUS 4.3 mg/dL (2.5-4.9)
[2018-06-15] VITALS (8 sets, daily range): BP systolic 90–112; BP diastolic 55–76
[2018-06-16] VITALS: BP 93/52
[2018-06-16 04:00] VITALS: BP 93/62
[2018-06-16 05:30] LABS: BASOPHIL (%) 0.4 % (0-1); EOSINOPHIL COUNT 0.1 K/uL (0-0.3); HEMATOCRIT 27.7 % (38.0-50.0); HEMOGLOBIN 8.8 G/DL (12.5-16.6); IMMATURE GRANULOCYTE (%) 0.4 % (0.0-0.7); LYMPHOCYTE (%) 17.9 % (15-42); LYMPHOCYTE COUNT 0.5 K/uL (1.0-2.8); MCH 34.5 PG (29.0-34.0); MCHC 31.8 G/DL (30.0-36.0); MCV 108.6 FL (86-99); MONOCYTE (%) 13.6 % (3-12); MONOCYTE COUNT 0.4 K/uL (0-0.8); NEUTROPHIL (%) 63.7 % (45-76); NEUTROPHIL COUNT 1.7 K/uL (1.8-6.4); PLATELET COUNT 70 K/uL (156-360); RBC DIS.WIDTH-CV 21.1 % (11.8-14.6); RBC DIS.WIDTH-SD 81.4 % (39-53); RED BLOOD COUNT 2.55 M/uL (4.00-5.50); WHITE BLOOD COUNT 2.7 K/uL (4.1-10.2)
[2018-06-16 06:00] LABS: ALBUMIN 2.2 G/DL (3.2-4.8); ALKALINE PHOSPHATASE 64 IU/L (3-129); ALT (GPT) 10 IU/L (3-49); AST (GOT) 37 IU/L (2-34); CHLORIDE 108 MEQ/L (99-109); CREATININE 0.7 MG/DL (0.6-1.3); GFR ESTIMATE (CALCULATED) > 59 mL/min/ (58.99-99999); GLUCOSE 118 mg/dL (70-99); SODIUM 142 MEQ/L (136-147); TOTAL BILIRUBIN 2.5 MG/DL (0.0-1.0); TOTAL PROTEIN 5.2 G/DL (6.4-8.3); UREA NITROGEN (BUN) 5 mg/dL (9-23)
[2018-06-16 08:02] VITALS: BP 98/66
[2018-06-16 12:28] VITALS: BP 111/60
[2018-06-16 16:00] VITALS: BP 96/61
[2018-06-16 19:10] VITALS: BP 104/57
[2018-06-17] VITALS (7 sets, daily range): BP systolic 85–159; BP diastolic 50–127
[2018-06-17 10:05] LABS: BASOPHIL (%) 0.4 % (0-1); EOSINOPHIL (%) 4.1 % (0-5); EOSINOPHIL COUNT 0.1 K/uL (0-0.3); HEMATOCRIT 28.4 % (38.0-50.0); HEMOGLOBIN 9.1 G/DL (12.5-16.6); IMMATURE GRANULOCYTE (%) 0.4 % (0.0-0.7); LYMPHOCYTE (%) 22.1 % (15-42); LYMPHOCYTE COUNT 0.6 K/uL (1.0-2.8); MCH 34.5 PG (29.0-34.0); MCV 107.6 FL (86-99); MONOCYTE (%) 15.1 % (3-12); MONOCYTE COUNT 0.4 K/uL (0-0.8); NEUTROPHIL (%) 57.9 % (45-76); NEUTROPHIL COUNT 1.6 K/uL (1.8-6.4); PLATELET COUNT 91 K/uL (156-360); RBC DIS.WIDTH-CV 20.5 % (11.8-14.6); RBC DIS.WIDTH-SD 79.2 % (39-53); RED BLOOD COUNT 2.64 M/uL (4.00-5.50); WHITE BLOOD COUNT 2.7 K/uL (4.1-10.2)
[2018-06-17 12:01] LABS: CHLORIDE 104 MEQ/L (99-109); CREATININE 0.7 MG/DL (0.6-1.3); GFR ESTIMATE (CALCULATED) > 59 mL/min/ (58.99-99999); GLUCOSE 89 mg/dL (70-99); POTASSIUM 4.5 MEQ/L (3.7-5.4); SODIUM 138 MEQ/L (136-147); UREA NITROGEN (BUN) 6 mg/dL (9-23)
[2018-06-18 05:34] VITALS: BP 93/56
[2018-06-18 07:57] VITALS: BP 92/55
[2018-06-18 17:29] VITALS: BP 100/59
[2018-06-18 20:30] VITALS: BP 95/51
[2018-06-18 23:04] VITALS: BP 90/57
[2018-06-19 00:37] VITALS: BP 92/58
[2018-06-19 04:32] VITALS: BP 104/58
[2018-06-19 08:47] VITALS: BP 123/64
[2018-06-19 11:40] VITALS: BP 103/62
[2018-06-19 14:02] VITALS: BP 100/61
[2018-06-19 23:15] VITALS: BP 100/53
[2018-06-20 07:19] VITALS: BP 92/58
[2018-06-20 16:01] VITALS: BP 94/67
[2018-06-21 00:21] VITALS: BP 103/67
[2018-06-21 06:14] LABS: HEMATOCRIT 27.8 % (38.0-50.0); HEMOGLOBIN 9.2 G/DL (12.5-16.6); MCH 35.2 PG (29.0-34.0); MCHC 33.1 G/DL (30.0-36.0); MCV 106.5 FL (86-99); PLATELET COUNT 82 K/uL (156-360); RBC DIS.WIDTH-CV 18.4 % (11.8-14.6); RBC DIS.WIDTH-SD 71.3 % (39-53); RED BLOOD COUNT 2.61 M/uL (4.00-5.50); WHITE BLOOD COUNT 2.4 K/uL (4.1-10.2)
[2018-06-21 06:41] LABS: ALBUMIN 2.6 G/DL (3.2-4.8); ALKALINE PHOSPHATASE 61 IU/L (3-129); ALT (GPT) 13 IU/L (3-49); AST (GOT) 41 IU/L (2-34); CHLORIDE 105 MEQ/L (99-109); CREATININE 0.7 MG/DL (0.6-1.3); GFR ESTIMATE (CALCULATED) > 59 mL/min/ (58.99-99999); GLUCOSE 123 mg/dL (70-99); MAGNESIUM 1.7 mg/dl (1.3-2.7); POTASSIUM 3.9 MEQ/L (3.7-5.4); SODIUM 137 MEQ/L (136-147); TOTAL BILIRUBIN 2.7 MG/DL (0.0-1.0); UREA NITROGEN (BUN) 6 mg/dL (9-23)
[2018-06-21 07:14] VITALS: BP 91/63
[2018-06-21 15:03] VITALS: BP 105/66
[2018-06-22 00:04] VITALS: BP 92/53
[2018-06-22 07:29] VITALS: BP 106/67
[2018-06-22 16:19] VITALS: BP 92/52
[2018-06-23 00:38] VITALS: BP 94/56
[2018-06-23 07:58] VITALS: BP 102/61
[2018-06-23] MEDS ORDERED: SPIRONOLACTONE25 MG PO (15:31)
[2018-06-23] MEDS ORDERED: TRAZODONE HCL50 MG PO (15:33)
[2018-06-23] MEDS ORDERED: FOLIC ACID1 MG PO (15:34)
[2018-06-23 16:19] VITALS: BP 94/63
[2018-06-23 23:22] VITALS: BP 93/54
[2018-06-24 07:50] VITALS: BP 105/65
[2018-06-24 15:45] VITALS: BP 156/87
[2018-06-24 23:55] VITALS: BP 94/67
[2018-06-25 04:19] LABS: BASOPHIL (%) 0 % (0-1); EOSINOPHIL (%) 0 % (0-5); HEMATOCRIT 29.7 % (38.0-50.0); HEMOGLOBIN 10.6 G/DL (12.5-16.6); IMMATURE GRANULOCYTE (%) 0.5 % (0.0-0.7); LYMPHOCYTE (%) 6.1 % (15-42); LYMPHOCYTE COUNT 0.3 K/uL (1.0-2.8); MCH 36.2 PG (29.0-34.0); MCHC 35.7 G/DL (30.0-36.0); MCV 101.4 FL (86-99); MONOCYTE (%) 11.4 % (3-12); MONOCYTE COUNT 0.5 K/uL (0-0.8); NEUTROPHIL COUNT 3.4 K/uL (1.8-6.4); NRBC (%) 0.5 /100 WBC (0-0); PLATELET COUNT 58 K/uL (156-360); RBC DIS.WIDTH-CV 16.6 % (11.8-14.6); RBC DIS.WIDTH-SD 61.7 % (39-53); RED BLOOD COUNT 2.93 M/uL (4.00-5.50); WHITE BLOOD COUNT 4.1 K/uL (4.1-10.2)
[2018-06-25 04:27] LABS: CHLORIDE 102 mEq/L (99-109)
[2018-06-25 04:29] LABS: GLUCOSE 96 mg/dL (70-99); POTASSIUM 4.8 mEq/L (3.7-5.4); PTT 57.6 SEC (25-37); SODIUM 129 mEq/L (136-147)
[2018-06-25 04:33] LABS: CREATININE 0.8 mg/dL (0.6-1.3); GFR ESTIMATE (CALCULATED) > 59 mL/min/ (58.99-99999); UREA NITROGEN (BUN) 7 mg/dL (9-23)
[2018-06-25 08:23] VITALS: BP 97/67
[2018-06-25 13:24] LABS: APPEARANCE SL.HAZY ((CLEAR)); BILIRUBIN NEGATIVE; BLOOD NEGATIVE; COLOR AMBER ((YELLOW)); GLUCOSE (STRIP) NEGATIVE; KETONES NEGATIVE; LEUKOCYTES NEGATIVE; NITRITE NEGATIVE; PROTEIN (STRIP) NEGATIVE; SPECIFIC GRAVITY 1.034 (1.000-1.030); UROBILINOGEN 0.2 MG/DL (0.2-1.0)
[2018-06-25 13:35] LABS: BACTERIA NONE SEEN /HPF; EPITHELIAL CELLS NONE SEEN /HPF; MUCUS TRACE /LPF; RED BLOOD CELLS 0-5 /HPF (0-5); UCUL ADDED? NO; WHITE BLOOD CELLS 0-5 /HPF (0-5)
[2018-06-25 16:31] VITALS: BP 90/54
[2018-06-25 23:58] VITALS: BP 84/56
[2018-06-26 03:42] VITALS: BP 98/63
[2018-06-26 07:04] LABS: BASOPHIL (%) 0 % (0-1); EOSINOPHIL (%) 0 % (0-5); HEMATOCRIT 31.3 % (38.0-50.0); HEMOGLOBIN 10.4 G/DL (12.5-16.6); LYMPHOCYTE (%) 6.1 % (15-42); LYMPHOCYTE COUNT 0.2 K/uL (1.0-2.8); MCH 34.4 PG (29.0-34.0); MCHC 33.2 G/DL (30.0-36.0); MCV 103.6 FL (86-99); MONOCYTE (%) 9.8 % (3-12); MONOCYTE COUNT 0.3 K/uL (0-0.8); NEUTROPHIL (%) 84.1 % (45-76); NEUTROPHIL COUNT 2.8 K/uL (1.8-6.4); RBC DIS.WIDTH-CV 16.6 % (11.8-14.6); RBC DIS.WIDTH-SD 63.3 % (39-53); RED BLOOD COUNT 3.02 M/uL (4.00-5.50); WHITE BLOOD COUNT 3.3 K/uL (4.1-10.2)
[2018-06-26 07:18] LABS: IMM.PLATELET FRACTION 5.5 (1-7); PLAT.SUFFICIENCY DECREASED
[2018-06-26 07:22] LABS: PLATELET COUNT 39 K/uL (156-360)
[2018-06-26 07:29] LABS: CHLORIDE 102 MEQ/L (99-109); CREATININE 0.7 MG/DL (0.6-1.3); GFR ESTIMATE (CALCULATED) > 59 mL/min/ (58.99-99999); GLUCOSE 107 mg/dL (70-99); POTASSIUM 4.2 MEQ/L (3.7-5.4); SODIUM 134 MEQ/L (136-147); UREA NITROGEN (BUN) 9 mg/dL (9-23)
[2018-06-26 07:58] VITALS: BP 108/56
[2018-06-26 08:46] LABS: ALBUMIN 2.7 G/DL (3.2-4.8); ALKALINE PHOSPHATASE 58 IU/L (3-129); ALT (GPT) 23 IU/L (3-49); TOTAL BILIRUBIN 2.8 MG/DL (0.0-1.0); TOTAL PROTEIN 6.1 G/DL (6.4-8.3)
[2018-06-26 08:48] LABS: AST (GOT) 67 IU/L (2-34)
[2018-06-26 15:56] VITALS: BP 102/63
[2018-06-27 00:26] VITALS: BP 100/57
[2018-06-27 06:22] LABS: CHLORIDE 106 MEQ/L (99-109); CREATININE 0.6 MG/DL (0.6-1.3); GFR ESTIMATE (CALCULATED) > 59 mL/min/ (58.99-99999); GLUCOSE 128 mg/dL (70-99); HEMATOCRIT 29.2 % (38.0-50.0); HEMOGLOBIN 9.9 G/DL (12.5-16.6); MCH 34.5 PG (29.0-34.0); MCHC 33.9 G/DL (30.0-36.0); MCV 101.7 FL (86-99); POTASSIUM 3.7 MEQ/L (3.7-5.4); RBC DIS.WIDTH-CV 16.2 % (11.8-14.6); RED BLOOD COUNT 2.87 M/uL (4.00-5.50); SODIUM 136 MEQ/L (136-147); UREA NITROGEN (BUN) 8 mg/dL (9-23); WHITE BLOOD COUNT 2.7 K/uL (4.1-10.2)
[2018-06-27 06:42] LABS: ANISOCYTOSIS 2+; BASOPHIL (%) 0 % (0-1); EOSINOPHIL (%) 1.8 % (0-5); EOSINOPHIL COUNT 0.1 K/uL (0-0.3); IMM.PLATELET FRACTION 6.7 (1-7); IMMATURE GRANULOCYTE (%) 0.4 % (0.0-0.7); LYMPHOCYTE (%) 13.2 % (15-42); LYMPHOCYTE COUNT 0.4 K/uL (1.0-2.8); MACROCYTES 2+; MONOCYTE (%) 12.5 % (3-12); MONOCYTE COUNT 0.3 K/uL (0-0.8); NEUTROPHIL (%) 72.1 % (45-76); PLAT.SUFFICIENCY VERY DECREASED; PLATELET COUNT 43 K/uL (156-360)
[2018-06-27 06:57] VITALS: BP 98/55
[2018-06-27 11:36] VITALS: BP 143/68
[2018-06-27 16:19] VITALS: BP 105/69
[2018-06-28 00:06] VITALS: BP 116/66
[2018-06-28 05:59] LABS: INTER. NORMALIZED RATIO 1.4
[2018-06-28 06:06] LABS: HEMATOCRIT 30.1 % (38.0-50.0); HEMOGLOBIN 10.1 G/DL (12.5-16.6); MCH 34.2 PG (29.0-34.0); MCHC 33.6 G/DL (30.0-36.0); PLATELET COUNT 51 K/uL (156-360); RBC DIS.WIDTH-CV 15.9 % (11.8-14.6); RBC DIS.WIDTH-SD 59.7 % (39-53); RED BLOOD COUNT 2.95 M/uL (4.00-5.50); WHITE BLOOD COUNT 2.7 K/uL (4.1-10.2)
[2018-06-28 06:35] LABS: BASOPHIL (%) 0 % (0-1); EOSINOPHIL (%) 2.3 % (0-5); EOSINOPHIL COUNT 0.1 K/uL (0-0.3); LYMPHOCYTE (%) 18.9 % (15-42); LYMPHOCYTE COUNT 0.5 K/uL (1.0-2.8); MONOCYTE (%) 7.5 % (3-12); MONOCYTE COUNT 0.2 K/uL (0-0.8); NEUTROPHIL (%) 71.3 % (45-76); NEUTROPHIL COUNT 1.9 K/uL (1.8-6.4); PLAT.SUFFICIENCY VERY DECREASED
[2018-06-28 06:38] LABS: CHLORIDE 108 MEQ/L (99-109); CREATININE 0.6 MG/DL (0.6-1.3); GFR ESTIMATE (CALCULATED) > 59 mL/min/ (58.99-99999); GLUCOSE 155 mg/dL (70-99); POTASSIUM 3.5 MEQ/L (3.7-5.4); SODIUM 138 MEQ/L (136-147); UREA NITROGEN (BUN) 7 mg/dL (9-23)
[2018-06-28 07:33] VITALS: BP 127/67
[2018-06-28 15:49] VITALS: BP 115/71
[2018-06-28 23:59] VITALS: BP 106/70
[2018-06-29 05:52] LABS: HEMATOCRIT 31.2 % (38.0-50.0); HEMOGLOBIN 10.6 G/DL (12.5-16.6); MCH 34.5 PG (29.0-34.0); MCV 101.6 FL (86-99); PLATELET COUNT 58 K/uL (156-360); RBC DIS.WIDTH-CV 15.5 % (11.8-14.6); RBC DIS.WIDTH-SD 57.7 % (39-53); RED BLOOD COUNT 3.07 M/uL (4.00-5.50); WHITE BLOOD COUNT 3.7 K/uL (4.1-10.2)
[2018-06-29 06:17] LABS: CHLORIDE 105 MEQ/L (99-109); CREATININE 0.5 MG/DL (0.6-1.3); GFR ESTIMATE (CALCULATED) > 59 mL/min/ (58.99-99999); GLUCOSE 142 mg/dL (70-99); POTASSIUM 3.8 MEQ/L (3.7-5.4); SODIUM 136 MEQ/L (136-147); UREA NITROGEN (BUN) 6 mg/dL (9-23)
[2018-06-29 06:19] LABS: ANISOCYTOSIS 2+; ATYPICAL LYMPHOCYTE 0.9 %; EOSINOPHIL ABS CT 0; EOSINOPHILS 0.9 % (0-5.0); LYMPHOCYTES 11.5 % (15.0-45.0); MACROCYTES 2+; METAMYELOCYTES 0.9 %; MONOCYTES 3.5 % (0-9.0); PLAT.SUFFICIENCY DECREASED; POIKILOCYTOSIS 1+; SEG.NEUTROPHILS 82.3 % (46.0-76.0)
[2018-06-29 07:23] VITALS: BP 94/56
[2018-06-29 15:27] VITALS: BP 101/58
[2018-06-29 23:12] VITALS: BP 103/58
[2018-06-30 05:56] LABS: HEMOGLOBIN 10.1 G/DL (12.5-16.6); MCH 34.5 PG (29.0-34.0); MCHC 33.7 G/DL (30.0-36.0); MCV 102.4 FL (86-99); PLATELET COUNT 57 K/uL (156-360); RBC DIS.WIDTH-CV 15.2 % (11.8-14.6); RBC DIS.WIDTH-SD 56.7 % (39-53); RED BLOOD COUNT 2.93 M/uL (4.00-5.50); WHITE BLOOD COUNT 4.3 K/uL (4.1-10.2)
[2018-06-30 06:03] LABS: INTER. NORMALIZED RATIO 1.4
[2018-06-30 06:18] LABS: CHLORIDE 106 MEQ/L (99-109); CREATININE 0.6 MG/DL (0.6-1.3); GFR ESTIMATE (CALCULATED) > 59 mL/min/ (58.99-99999); GLUCOSE 131 mg/dL (70-99); POTASSIUM 3.9 MEQ/L (3.7-5.4); SODIUM 138 MEQ/L (136-147); UREA NITROGEN (BUN) 8 mg/dL (9-23)
[2018-06-30 06:47] LABS: BASOPHIL (%) 0.2 % (0-1); EOSINOPHIL (%) 2.1 % (0-5); EOSINOPHIL COUNT 0.1 K/uL (0-0.3); IMMATURE GRANULOCYTE (%) 0.2 % (0.0-0.7); LYMPHOCYTE (%) 12.8 % (15-42); LYMPHOCYTE COUNT 0.6 K/uL (1.0-2.8); MONOCYTE (%) 8.8 % (3-12); MONOCYTE COUNT 0.4 K/uL (0-0.8); NEUTROPHIL (%) 75.9 % (45-76); NEUTROPHIL COUNT 3.3 K/uL (1.8-6.4)
[2018-06-30 06:57] VITALS: BP 105/62
[2018-06-30] MEDS ORDERED: AUGMENTIN875 MG PO (08:36)
== END 2018-06-30 11:21 | disposition home or self-care (01) | DRG 871 ==
LOC: EME 16:14 → EDOF 20:16 → 4EAST 20:16 → 4WEST 20:16 → ENRESERV 20:17 → 4WEST 22:59 → CANRESERV 06-14 15:35 → ENRESERV 06-14 15:35 → 4EAST 06-16 12:13 → ENRESERV 06-19 11:59 → 5SOUTH 06-19 13:34
PROVIDERS: Emergency Medicine; Hospitalist; Internal Medicine; Internal Medicine Critical Care Medicine; Physician Assistant Medical; Student in an Organized Health Care Education/Training Program
PROC: 0BH17EZ Insertion of Endotracheal Airway into Trachea, Via Natural or Artificial Opening (ICD-10-PCS; principal; 2018-05-31)
PROC: 5A1945Z Respiratory Ventilation, 24-96 Consecutive Hours (ICD-10-PCS; principal; 2018-05-31)
PROC: 03HY32Z Insertion of Monitoring Device into Upper Artery, Percutaneous Approach (ICD-10-PCS; 2018-06-01)
DX: A41.9 Sepsis, unspecified organism (principal); J15.0 Pneumonia due to Klebsiella pneumoniae; R65.21 Severe sepsis with septic shock; J96.01 Acute respiratory failure with hypoxia; J44.0 Chronic obstructive pulmonary disease with (acute) lower respiratory infection; J69.0 Pneumonitis due to inhalation of food and vomit; N17.9 Acute kidney failure, unspecified; T82.868A Thrombosis due to vascular prosthetic devices, implants and grafts, initial encounter; T82.7XXA Infection and inflammatory reaction due to other cardiac and vascular devices, implants and grafts, initial encounter; R78.81 Bacteremia; B95.2 Enterococcus as the cause of diseases classified elsewhere; Y84.8 Other medical procedures as the cause of abnormal reaction of the patient, or of later complication, without mention of misadventure at the time of the procedure; J44.1 Chronic obstructive pulmonary disease with (acute) exacerbation; G93.41 Metabolic encephalopathy; D61.818 Other pancytopenia; T51.0X1A Toxic effect of ethanol, accidental (unintentional), initial encounter; E87.4 Mixed disorder of acid-base balance; E83.51 Hypocalcemia; D68.9 Coagulation defect, unspecified; R13.10 Dysphagia, unspecified; F05 Delirium due to known physiological condition; K70.40 Alcoholic hepatic failure without coma; K70.30 Alcoholic cirrhosis of liver without ascites; E87.2 Acidosis; E87.70 Fluid overload, unspecified; E46 Unspecified protein-calorie malnutrition; K76.6 Portal hypertension; I27.20 Pulmonary hypertension, unspecified; K52.9 Noninfective gastroenteritis and colitis, unspecified; E51.2 Wernicke's encephalopathy; D73.1 Hypersplenism; G47.00 Insomnia, unspecified; G89.29 Other chronic pain; B19.20 Unspecified viral hepatitis C without hepatic coma; E11.9 Type 2 diabetes mellitus without complications; K21.9 Gastro-esophageal reflux disease without esophagitis; L72.3 Sebaceous cyst; M79.7 Fibromyalgia; F10.20 Alcohol dependence, uncomplicated; F17.210 Nicotine dependence, cigarettes, uncomplicated; F32.9 Major depressive disorder, single episode, unspecified; F41.9 Anxiety disorder, unspecified; Z86.73 Personal history of transient ischemic attack (TIA), and cerebral infarction without residual deficits
CPT/HCPCS: 36600; 70450; 71045; 71046; 71275; 74018; 74177; 80048; 80053; 80076; 80170; 81003; 82140; 82436; 82570; 82607; 82746; 82803; 83605; 83690; 83735; 84100; 84133; 84145 90; 84300; 84484; 85025; 85027; 85610; 85651; 85730; 86140; 86141; 86850; 86900; 86901; 87040; 87070; 87077; 87186; 87205; 87449; 87493; 87641; 87801; 92526 GN; 92610 GN; 93005; 93306; 93971; 94002; 94003; 94640; 94760; 94799; 97530 GO; 97530 GP; 99281; 99285; C1751; G0480; J0290; J0456; J0692; J0696; J1580; J1630; J1644; J1940; J2060; J2543; J2704; J3010; J3370; J3411; J3475; J3480; J7030; J7050; J7120; P9045; S0028; S0030